=== PATIENT | male | born 1965 | race Caucasian/White ===

== ENCOUNTER 2018-12-28 15:43 | Observation (INO) | payer BC ==
[~2018-12-28] VITALS: Ht 185.4 cm; Wt 108.0 kg
[~2018-12-28 15:43] MED LIST: Acetaminophen With Codeine PO; EXEN2VIA SQ; FENO134C PO; Ibuprofen PO; LISI-130 PO; SITA1TAB11 PO; TRAZ-118 PO
--- NOTE | 2018-12-28 16:09 | EKG ---
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
--- NOTE | 2018-12-28 16:21 | PHYS DOC ---
Past Medical History Past Medical History: Diabetes-Type II, High Cholesterol, Hypertension, Other Additional Past Medical Histor: LIVER ABSCESS Past Surgical History: Other Additional Past Surgical Histo: UNK Smoking: Cigarettes, 1 Pack Per Day Alcohol Use: Occasionally (1-2 mixed drinks a night) Drug Use: None Adult General Chief Complaint Chief Complaint: CHEST PAIN HPI HPI Patient is a 53 year old male accompanied by his who presents to the ER with complaints of chest pain for the last 2 weeks. Pt states that he has been easily fatigued and been experiencing night sweats with the pain. The pain is located in his left chest and he describes it as pressure, currently the pain is a 3/10 on the pain scale. Patient denies any alleviating or aggravating factors. He usually takes an aspirin daily but did not take one today. Pt denies any n ausea, vomiting, palpitations, or leg swelling. He states his upper abdomen feels swollen. Pt smokes approximately 1 PPD of cigarettes and drinks 1-2 mixed drinks each evening. He reports a hx of type 2 diabetes, hypertension, and elevated bad cholesterol. He denies any CAD or [place] hx. He states that he was sent by his PCP for admission and a stress test. Review of Systems Review of Systems Constitutional: Denies fever or chills [] Eyes: Denies change in visual acuity, redness, or eye pain [] HENT: Denies nasal congestion or sore throat [] Respiratory: Denies cough or shortness of breath [] Cardiovascular: No additional information not addressed in HPI [] GI: Denies abdominal pain, nausea, vomiting, bloody stools or diarrhea [] : Denies dysuria or hematuria [] Musculoskeletal: Denies back pain or joint pain [] Integument: Denies rash or skin lesions; reports night sweats [] Neurologic: Denies headache, focal weakness or sensory changes [] Complete systems were reviewed and found to be within normal limits, except as documented in this note. Current Medications Current Medications Current Medications Medications (Trade) Dose Ordered Sig/Alen Start Time Stop Time Status Last Admin Dose Admin Aspirin (Precious Aspirin) 325 mg 1X ONCE 12/28/18 16:30 12/28/18 16:31 DC 12/28/18 16:37 325 MG Nitroglycerin (Nitrostat) 0.4 mg PRN Q5MIN PRN 7/9/19 16:30 12/28/18 16:37 0.4 MG Allergies Allergies Allergies Coded Allergies Type Severity Reaction Last Updated Verified No Known Drug Allergies 04/20/15 No Physical Exam Physical Exam Constitutional: Well developed, well nourished, no acute distress, non-toxic appearance, obese. [] HENT: Normocephalic, atraumatic, bilateral external ears normal, nose normal. [] Eyes: conjunctiva normal, no discharge. [] Neck: Normal range of motion, no stridor. [] Cardiovascular:Heart rate regular rhythm, no murmur [] Lungs & Thorax: Bilateral breath sounds clear to auscultation, respirations e ken and unlabored[] Abdomen: Bowel sounds normal, soft, no tenderness, no masses, no pulsatile masses. [] Skin: Warm, dry, no erythema, no rash. [] Extremities: No cyanosis, no clubbing, ROM intact, no edema. [] Neurologic: Alert and oriented X 3, no focal deficits noted. [] Psychologic: Affect normal, judgement normal, mood normal. [] Current Patient Data Vital Signs Vital Signs Date Time Temp Pulse Resp B/P (MAP) Pulse Ox O2 Delivery O2 Flow Rate FiO2 12/28/18 16:37 69 135/80 12/28/18 16:17 98.5 16 95 Room Air 98.5 Lab Values Laboratory Tests Test 12/28/18 16:30 White Blood Count 5.9 x10^3/uL (4.0-11.0) Red Blood Count 4.08 x10^6/uL (4.30-5.70) L Hemoglobin 13.7 g/dL (13.0-17.5) Hematocrit 39.7 % (39.0-53.0) Mean Corpuscular Volume 97 fL (79-100) Mean Corpuscular Hemoglobin 34 pg (25-35) Mean Corpuscular Hemoglobin Concent 35 g/dL (31-37) Red Cell Distribution Width 13.8 % (11.5-14.5) Platelet Count 265 x10^3/uL (140-400) Neutrophils (%) (Auto) 56 % (31-73) Lymphocytes (%) (Auto) 30 % (24-48) Monocytes (%) (Auto) 8 % (0-9) Eosinophils (%) (Auto) 6 % (0-3) H Basophils (%) (Auto) 1 % (0-3) Neutrophils # (Auto) 3.3 x10^3uL (1.8-7.7) Lymphocytes # (Auto) 1.8 x10^3/uL (1.0-4.8) Monocytes # (Auto) 0.5 x10^3/uL (0.0-1.1) Eosinophils # (Auto) 0.4 x10^3/uL (0.0-0.7) Basophils # (Auto) 0.0 x10^3/uL (0.0-0.2) Prothrombin Time 12.8 SEC (11.7-14.0) Prothrombin Time INR 1.0 (0.8-1.1) Sodium Level 139 mmol/L (136-145) Potassium Level 4.1 mmol/L (3.5-5.1) Chloride Level 105 mmol/L (98-107) Carbon Dioxide Level 24 mmol/L (21-32) Anion Gap 10 (6-14) Blood Urea Nitrogen 19 mg/dL (8-26) Creatinine 1.1 mg/dL (0.7-1.3) Estimated GFR (Cockcroft-Gault) 69.8 BUN/Creatinine Ratio 17 (6-20) Glucose Level 91 mg/dL (70-99) Calcium Level 9.4 mg/dL (8.5-10.1) Magnesium Level 2.0 mg/dL (1.8-2.4) Total Bilirubin 0.3 mg/dL (0.2-1.0) Aspartate Amino Transferase (AST) 27 U/L (15-37) Alanine Aminotransferase (ALT) 39 U/L (16-63) Alkaline Phosphatase 56 U/L (46-116) Creatine Kinase 370 U/L (39-308) H Creatine Kinase MB (Mass) 7.1 ng/mL (0.0-3.6) H Creatine Kinase MB Relative Index 1.9 % (0-4) Troponin I Quantitative < 0.017 ng/mL (0.000-0.055) Total Protein 6.8 g/dL (6.4-8.2) Albumin 3.9 g/dL (3.4-5.0) Albumin/Globulin Ratio 1.3 (1.0-1.7) Laboratory Tests 12/28/18 16:30 Laboratory Tests 12/28/18 16:30 EKG EKG 1614- SR rate of 64, no STEMI, QRS(T) contour abnormality, consider anteroseptal damage, read by Dr. Garcia [] Radiology/Procedures Radiology/Procedures PROCEDURE: CHEST PA & LATERAL CHEST PA LATERAL History: Chest pain. COMPARISON: None FINDINGS: The heart size is nonenlarged. No evidence of infiltrate, pleural effusion or pneumothorax. Bones appear grossly intact. IMPRESSION: No evidence of consolidating infiltrate.[] Course & Med Decision Making Course & Med Decision Making Pertinent Labs and Imaging studies reviewed. (See chart for details) Dx: chest pain EKG negative for STEMI, Pt was given 1 SL nitro in the ER with no change in CP, however, BP dropped significantly so remaining 2 doses were held by nurse, pt also given 325 mg of ASA CBC unremarkable, PT/INR WNL, CK 370, ck-mb 7.1, troponin <0.017 otherwise unremarkable CXR unremarkable 1718- Spoke with Dr. Vazquez, will admit patient for Chest pain observation, pt is in agreement with plan for admission. [] Dragon Disclaimer Dragon Disclaimer This electronic medical record was generated, in whole or in part, using a voice recognition dictation system. Departure Departure Referrals: CYRUS SAGASTUME MD (PCP) MARYURI VILLAGRAN APRN Dec 28, 2018 16:21
--- NOTE | 2018-12-28 16:25 | RAD ---
CHEST PA LATERAL History: Chest pain. COMPARISON: None FINDINGS: The heart size is nonenlarged. No evidence of infiltrate, pleural effusion or pneumothorax. Bones appear grossly intact. IMPRESSION: No evidence of consolidating infiltrate. Electronically signed by: Jadon Palencia MD (12/28/2018 4:22 PM) [id number]
[2018-12-28] MEDS ORDERED: ASPIRIN 325 MG TABLET PO ONE (16:30)
[2018-12-28] MEDS ORDERED: NITROGLYCERIN SUBLINGUAL 0.4 MG BOTTLE OF 25. SL PRN (16:30)
[2018-12-28 16:49] LABS: BASO % 1 % (0-3); EOS # 0.4 x10^3/uL (0.0-0.7); EOS % 6 % (0-3); HEMATOCRIT 39.7 % (39.0-53.0); HEMOGLOBIN 13.7 g/dL (13.0-17.5); LYMPH # 1.8 x10^3/uL (1.0-4.8); LYMPH % 30 % (24-48); MEAN CORPUSCULAR HEMOGLOBIN 34 pg (25-35); MEAN CORPUSCULAR HGB CONC 35 g/dL (31-37); MEAN CORPUSCULAR VOLUME 97 fL (79-100); MONO # 0.5 x10^3/uL (0.0-1.1); MONO % 8 % (0-9); NEUT # 3.3 x10^3uL (1.8-7.7); NEUT % 56 % (31-73); PLATELET COUNT 265 x10^3/uL (140-400); RED BLOOD COUNT 4.08 x10^6/uL (4.30-5.70); RED CELL DISTRIBUTION WIDTH 13.8 % (11.5-14.5); WHITE BLOOD COUNT 5.9 x10^3/uL (4.0-11.0)
[2018-12-28 17:08] LABS: PROTHROMBIN TIME PATIENT 12.8 SEC (11.7-14.0)
[2018-12-28 17:10] LABS: CALCIUM 9.4 mg/dL (8.5-10.1); CREATININE 1.1 mg/dL (0.7-1.3); GFR 69.8; POTASSIUM 4.1 mmol/L (3.5-5.1)
[2018-12-28 17:17] LABS: ALBUMIN 3.9 g/dL (3.4-5.0); ALBUMIN/GLOBULIN RATIO 1.3 (1.0-1.7); TOTAL BILIRUBIN 0.3 mg/dL (0.2-1.0); TOTAL PROTEIN 6.8 g/dL (6.4-8.2)
[2018-12-28 20:00] VITALS: BP 125/71
[2018-12-28] MEDS ORDERED: LISI-130 PO (20:24)
[2018-12-28] MEDS ORDERED: FENO134C PO (20:24)
[2018-12-28] MEDS ORDERED: METF10007 PO (20:24)
[2018-12-28] MEDS ORDERED: TRAZ-118 PO (20:24)
[2018-12-28] MEDS ORDERED: ZOLPIDEM 5 MG TABLET. PO PRN (20:45)
--- NOTE | 2018-12-28 20:58 | PDOC1 ---
History and Physical Date of Admission Date of Admission DATE: 12/28/18 TIME: 20:54 Identification/Chief Complaint Chief Complaint chest pain, nausea, weakness Source Source: Chart review, Patient History of Present Illness History of Present Illness MR. Beltre, is a 53 year old male admit for worsening chest pain, nausea and weakness, worse with exertion, over the past 2 weeks. pain is mild, to the left chest and he describes it as pressure, currently the pain is a 3/10 on the pain scale. he has new fatigue with exertion and is easily very tired. Patient denies any alleviating or aggravating factors. He usually takes an aspirin daily but did not take one today. marie. Pt smokes approximately 1 PPD of cigarettes and drinks 1-2 mixed drinks each evening. Past Medical History Cardiovascular: HTN Pulmonary: No pertinent hx GI: No pertinent hx Hepatobiliary: No pertinent hx Psych: No pertinent hx Endocrine: Diabetes Past Surgical History Past Surgical History: No pertinent history Family History Family History: No Significant Social History Smoke: 1 pack per day ALCOHOL: none Drugs: None Current Problem List Problem List Problems Medical Problems: (1) Chest pain Status: Acute Current Medications Current Medications Current Medications Aspirin (Precious Aspirin) 325 mg 1X ONCE PO Last administered on 12/28/18at 16:37; Start 12/28/18 at 16:30; Stop 12/28/18 at 16:31; Status DC Nitroglycerin (Nitrostat) 0.4 mg PRN Q5MIN PRN SL CHEST PAIN Last administered on 12/28/18at 16:37; Start 12/28/18 at 16:30 Famotidine (Pepcid) 20 mg BID PO ; Start 12/28/18 at 21:00 Lisinopril (Prinivil) 40 mg HS PO ; Start 12/28/18 at 21:00 Trazodone HCl (Desyrel) 50 mg QHS PO ; Start 12/28/18 at 21:00 Zolpidem Tartrate (Ambien) 5 mg PRN QHS PRN PO INSOMNIA, MAY REPEAT IN 1HR; Start 12/28/18 at 20:45 Active Scripts Active Reported Fenofibrate (Fenofibrate,Micronized) Unknown Strength Capsule Unknown Dose PO DAILY Metformin Hcl 1,000 Mg Tablet 1,000 Mg PO BIDWMEALS Lisinopril 40 Mg Tablet 1 Tab PO HS Trazodone Hcl 50 Mg Tablet 1 Tab PO QHS Allergies Allergies: Coded Allergies: No Known Drug Allergies (Unverified , 04/20/15) ROS General: YES: Fatigue, Other; No: Chills, Night Sweats, Appetite PSYCHOLOGICAL ROS: No: Anxiety, Behavioral Disorder, Concentration difficultie, Decreased libido, Depression, Disorientation, Hallucinations, Hostility, Irritablity, Memory difficulties, Mood Swings, Obsessive thoughts, Physical abuse, Sexual abuse, Sleep disturbances, Suicidal ideation, Other Eyes: No Blurry vision, No Decreased vision, No Double vision, No Dry eyes, No Excessive tearing, No Eye Pain, No Itchy Eyes, No Loss of vision, No Photophobia, No Scotomata, No Uses contacts, No Uses glasses, No Other HEENT: No: Heacaches, Visual Changes, Hearing change, Nasal congestion, Nasal discharge, Oral lesions, Sinus pain, Sore Throat, Epistaxis, Sneezing, Snoring, Tinnitus, Vertigo, Vocal changes, Other Respiratory: YES: SOB with excertion; No: Cough, Hemoptysis, Orthopnea, Pleuritic Pain, Shortness of breath, Sputum Changes, Stridor, Tachypnea, Wheezing, Other Cardiovascular: yes Chest Pain; No Palpitations, No Orthopnea, No Paroxysmal Noc. Dyspnea, No Edema, No Lt Headedness, No Other Gastrointestinal: No Nausea, No Vomiting, No Abdominal Pain, No Diarrhea, No Constipation, No Melena, No Hematochezia, No Other Genitourinary: No Dysuria, No Frequency, No Incontinence, No Hematuria, No Retention, No Discharge, No Urgency, No Pain, No Flank Pain, No Other, No , No , No , No , No , No , No Musculoskeletal: No Gait Disturbance, No Joint Pain, No Joint Stiffness, No Joint Swelling, No Muscle Pain, No Muscular Weakness, No Pain In:, No Swelling In:, No Other Neurological: No Behavorial Changes, No Bowel/Bladder ControlChng, No C onfusion, No Dizziness, No Gait Disturbance, No Headaches, No Impaired Coord/balance, No Memory Loss, No Numbness/Tingling, No Seizures, No Speech Problems, No Tremors, No Visual Changes, No Weakness, No Other Skin: Yes Dry Skin; No Eczema, No Hair Changes, No Lumps, No Mole Changes, No Mottling, No Nail Changes, No Pruritus, No Rash, No Skin Lesion Changes, No Other, No Acne Physical Exam General: Alert, No acute distress HEENT: Atraumatic, PERRLA, EOMI, Mucous membr. moist/pink Lungs: Clear to auscultation Heart: S1S2, RRR, no gallops Abdomen: Normal bowel sounds, Soft Rectal Exam: not examined Extremities: No clubbing, No cyanosis, No edema Skin: No breakdown, No significant lesion Neuro: Normal speech, Normal tone, Cranial nerves 3-12 NL Psych/Mental Status: Mental status NL, Mood NL Vitals Vitals Vital Signs Date Time Temp Pulse Resp B/P (MAP) Pulse Ox O2 Delivery O2 Flow Rate FiO2 12/28/18 20:00 97.8 69 16 125/71 (89) 94 Room Air 97.8 Labs Labs Laboratory Tests Test 12/28/18 16:30 White Blood Count 5.9 x10^3/uL (4.0-11.0) Red Blood Count 4.08 x10^6/uL (4.30-5.70) Hemoglobin 13.7 g/dL (13.0-17.5) Hematocrit 39.7 % (39.0-53.0) Mean Corpuscular Volume 97 fL (79-100) Mean Corpuscular Hemoglobin 34 pg (25-35) Mean Corpuscular Hemoglobin Concent 35 g/dL (31-37) Red Cell Distribution Width 13.8 % (11.5-14.5) Platelet Count 265 x10^3/uL (140-400) Neutrophils (%) (Auto) 56 % (31-73) Lymphocytes (%) (Auto) 30 % (24-48) Monocytes (%) (Auto) 8 % (0-9) Eosinophils (%) (Auto) 6 % (0-3) Basophils (%) (Auto) 1 % (0-3) Neutrophils # (Auto) 3.3 x10^3uL (1.8-7.7) Lymphocytes # (Auto) 1.8 x10^3/uL (1.0-4.8) Monocytes # (Auto) 0.5 x10^3/uL (0.0-1.1) Eosinophils # (Auto) 0.4 x10^3/uL (0.0-0.7) Basophils # (Auto) 0.0 x10^3/uL (0.0-0.2) Prothrombin Time 12.8 SEC (11.7-14.0) Prothromb Time International Ratio 1.0 (0.8-1.1) Sodium Level 139 mmol/L (136-145) Potassium Level 4.1 mmol/L (3.5-5.1) Chloride Level 105 mmol/L (98-107) Carbon Dioxide Level 24 mmol/L (21-32) Anion Gap 10 (6-14) Blood Urea Nitrogen 19 mg/dL (8-26) Creatinine 1.1 mg/dL (0.7-1.3) Estimated GFR (Cockcroft-Gault) 69.8 BUN/Creatinine Ratio 17 (6-20) Glucose Level 91 mg/dL (70-99) Calcium Level 9.4 mg/dL (8.5-10.1) Magnesium Level 2.0 mg/dL (1.8-2.4) Total Bilirubin 0.3 mg/dL (0.2-1.0) Aspartate Amino Transf (AST/SGOT) 27 U/L (15-37) Alanine Aminotransferase (ALT/SGPT) 39 U/L (16-63) Alkaline Phosphatase 56 U/L (46-116) Creatine Kinase 370 U/L (39-308) Creatine Kinase MB (Mass) 7.1 ng/mL (0.0-3.6) Creatine Kinase MB Relative Index 1.9 % (0-4) Troponin I Quantitative < 0.017 ng/mL (0.000-0.055) Total Protein 6.8 g/dL (6.4-8.2) Albumin 3.9 g/dL (3.4-5.0) Albumin/Globulin Ratio 1.3 (1.0-1.7) Laboratory Tests Test 12/28/18 16:30 White Blood Count 5.9 x10^3/uL (4.0-11.0) Red Blood Count 4.08 x10^6/uL (4.30-5.70) Hemoglobin 13.7 g/dL (13.0-17.5) Hematocrit 39.7 % (39.0-53.0) Mean Corpuscular Volume 97 fL (79-100) Mean Corpuscular Hemoglobin 34 pg (25-35) Mean Corpuscular Hemoglobin Concent 35 g/dL (31-37) Red Cell Distribution Width 13.8 % (11.5-14.5) Platelet Count 265 x10^3/uL (140-400) Neutrophils (%) (Auto) 56 % (31-73) Lymphocytes (%) (Auto) 30 % (24-48) Monocytes (%) (Auto) 8 % (0-9) Eosinophils (%) (Auto) 6 % (0-3) Basophils (%) (Auto) 1 % (0-3) Neutrophils # (Auto) 3.3 x10^3uL (1.8-7.7) Lymphocytes # (Auto) 1.8 x10^3/uL (1.0-4.8) Monocytes # (Auto) 0.5 x10^3/uL (0.0-1.1) Eosinophils # (Auto) 0.4 x10^3/uL (0.0-0.7) Basophils # (Auto) 0.0 x10^3/uL (0.0-0.2) Prothrombin Time 12.8 SEC (11.7-14.0) Prothromb Time International Ratio 1.0 (0.8-1.1) Sodium Level 139 mmol/L (136-145) Potassium Level 4.1 mmol/L (3.5-5.1) Chloride Level 105 mmol/L (98-107) Carbon Dioxide Level 24 mmol/L (21-32) Anion Gap 10 (6-14) Blood Urea Nitrogen 19 mg/dL (8-26) Creatinine 1.1 mg/dL (0.7-1.3) Estimated GFR (Cockcroft-Gault) 69.8 BUN/Creatinine Ratio 17 (6-20) Glucose Level 91 mg/dL (70-99) Calcium Level 9.4 mg/dL (8.5-10.1) Magnesium Level 2.0 mg/dL (1.8-2.4) Total Bilirubin 0.3 mg/dL (0.2-1.0) Aspartate Amino Transf (AST/SGOT) 27 U/L (15-37) Alanine Aminotransferase (ALT/SGPT) 39 U/L (16-63) Alkaline Phosphatase 56 U/L (46-116) Creatine Kinase 370 U/L (39-308) Creatine Kinase MB (Mass) 7.1 ng/mL (0.0-3.6) Creatine Kinase MB Relative Index 1.9 % (0-4) Troponin I Quantitative < 0.017 ng/mL (0.000-0.055) Total Protein 6.8 g/dL (6.4-8.2) Albumin 3.9 g/dL (3.4-5.0) Albumin/Globulin Ratio 1.3 (1.0-1.7) VTE Prophylaxis Ordered VTE Prophylaxis Devices: No VTE Pharmacological Prophylaxi: Yes Assessment/Plan Assessment/Plan chest pain, angina r.o ACD Dm2, good control, reports A1c of 5.1 htn low HDL, on fibrate tobacco use disorder, precontemplation of quitting obese, BMI 31 EMELINA FRANKLIN MD Dec 28, 2018 20:57
[2018-12-28] MEDS ORDERED: LISINOPRIL 20 MG TABLET PO SCH (21:00)
[2018-12-28] MEDS ORDERED: traZODone 50 MG TABLET. PO SCH (21:00)
[2018-12-28] MEDS: FAMOTIDINE 20 MG TABLET. PO SCH (21:35)
[2018-12-28] MEDS ORDERED: ENOXAPARIN 40 MG/0.4 ML SYRINGE. SQ SCH (22:00)
[2018-12-28 23:03] VITALS: BP 121/69
[2018-12-29 03:00] VITALS: BP 129/74
[2018-12-29 05:15] LABS: CHOLESTEROL/HDL RATIO 4.5
[2018-12-29 05:23] LABS: FREE T4 0.99 ng/dL (0.76-1.46); THYROID STIM HORMONE (TSH) 1.356 uIU/mL (0.358-3.74)
--- NOTE | 2018-12-29 06:07 | EKG ---
[facility] [address] [place] [address] Test Date: 2018-12-28 Test Time: 16:14:00 Pat Name: SUMMER THOMPSON Department: Room: Gender: Cable Maker: : 1965 Requested By: MARYURI VILLAGRAN Order Number: [id number] Reading MD: Measurements Intervals [place] Rate: 64 P: 31 IA: 164 QRS: 32 QRSD: 84 T: 30 QT: 374 QTc: 390 Interpretive Statements SINUS RHYTHM QRS(T) CONTOUR ABNORMALITY CONSIDER ANTEROSEPTAL MYOCARDIAL DAMAGE POSSIBLY ABNORMAL ECG RI6.01 No previous ECG available for comparison
[2018-12-29 07:48] VITALS: BP 142/86
--- NOTE | 2018-12-29 09:41 | CARD ---
MR#: [id number] Date of Study: 12/29/2018 Ordering Physician: EMELINA FRANKLIN, Referring Physician: EMELINA FRANKLIN, Tech: Capri Cruz APPROVED REPORT EXAM: Two-dimensional and M-mode echocardiogram with Doppler and color Doppler. Other Information Quality : AverageHR: 65bpm INDICATION Chest Pain RISK FACTORS Hypertension Hyperlipidemia Diabetes 2D DIMENSIONS RVDd3.2 (2.9-3.5cm)Left Atrium(2D)3.2 (1.6-4.0cm) IVSd1.0 (0.7-1.1cm)Aortic Root(2D)3.4 (2.0-3.7cm) LVDd5.3 (3.9-5.9cm)LVOT Diameter2.2 (1.8-2.4cm) PWd1.0 (0.7-1.1cm)LVDs3.9 (2.5-4.0cm) FS (%) 25.6 %SV66.9 ml LVEF(%)50.1 (>50%) Aortic Valve AoV Peak Keith.118.5cm/sAoV VTI22.8cm AO Peak GR.5.6mmHgLVOT Peak Keith.104.4cm/s LVOT VTI 21.79cmAO Mean GR.3mmHg RHETT (VMAX)2.09kt6ZDJ (VTI)3.75cm2 Mitral Valve MV E Wsdxbphk42.9cm/sMV DECEL [id number] MV A Gfxrtqqv39.2cm/sMV KUX33xs E/A Ratio1.1MVA (PHT)2.97cm2 TDI E/Lateral E'6.0E/Medial E'7.3 Pulmonary Valve PV Peak Keoyzawa83.0cm/sPV Peak Grad.3mmHg Tricuspid Valve RAP UIXNASCR2teOxTP Peak Gr.20mmHg [id number] Pulmonary Vein S1 Dcbsplvv61.1cm/sD2 Ngnaxlwo24.0cm/s PVa [id number] LEFT VENTRICLE The left ventricle is normal size. There is normal left ventricular wall thickness. The left ventricu lar systolic function is normal. The Ejection Fraction is 55-60%. There is normal LV segmental wall m otion. Transmitral Doppler flow pattern is Grade II-pseudonormal filling dynamics. RIGHT VENTRICLE The right ventricle is borderline dilated. There is normal right ventricular wall thickness. The righ t ventricular systolic function is normal. ATRIA The left atrium size is normal. The right atrium size is normal. The interatrial septum is intact wit h no evidence for an atrial septal defect or patent foramen ovale as noted on 2-D or Doppler imaging. AORTIC VALVE The aortic valve is thickened but opens well. Doppler and Color Flow revealed trace aortic regurgitat ion. There is no significant aortic valvular stenosis. MITRAL VALVE The mitral valve is normal in structure and function. There is no evidence of mitral valve prolapse. There is no mitral valve stenosis. Doppler and Color Flow revealed no mitral valve regurgitation note d. TRICUSPID VALVE The tricuspid valve is normal in structure and function. Doppler and Color Flow revealed trace tricus pid valve regurgitation noted with an estimated PAP of 23 mmHg. There is no tricuspid valve prolapse or vegetation. There is no tricuspid valve stenosis. PULMONIC VALVE The pulmonic valve is not well visualized. Doppler and Color Flow revealed no pulmonic valvular regur gitation. GREAT VESSELS The aortic root is normal in size. The IVC is normal in size and collapses >50% with inspiration. PERICARDIAL EFFUSION There is no evidence of significant pericardial effusion. Critical Notification Critical Value: No <Conclusion> The left ventricular systolic function is normal. The Ejection Fraction is 55-60%. There is normal LV segmental wall motion. Trace tricuspid valve regurgitation noted with an estimated PAP of 23 mmHg. There is no evidence of significant pericardial effusion. Signed by : Candido Muñoz, Electronically Approved : 12/29/2018 09:40:56
--- NOTE | 2018-12-29 10:40 | PDOC2 ---
CARDIAC CONSULT DATE OF CONSULT Date of Consult DATE: 12/29/18 TIME: 10:28 REASON FOR CONSULT Reason for Consult: Chest pain REFERRING PHYSICIAN Referring Physician: Vero Tee APRN SOURCE Source: Chart review, Patient HISTORY OF PRESENT ILLNESS HISTORY OF PRESENT ILLNESS This is a 53 yo male who presented secondary to chest pain. Patient reports falling on concrete about two weeks ago onto his left side. Has had left sided rib pain since then. Over the weekend, began having tightness in his left chest. Non-radiating. No associated dizziness, diaphoresis, palpitations, shortness or breath, or nausea/vomiting. Patient does complain of MEREDITH for the last 6 months, which has progressively worsened. Recently diagnosed with "mild" COPD. Pain seems to be better in the morning, but progresses throughout the day. No specifically worse with activity, but is much more intense in the evening. No affected by palpitation, deep breathing, or eating/drinking. PAST MEDICAL HISTORY Cardiovascular: HTN Pulmonary: COPD GI: GERD Psych: Depression Rheumatologic: No pertinent hx Infectious disease: No pertinent hx ENT: No pertinent hx Renal/: No pertinent hx Endocrine: Diabetes PAST SURGICAL HISTORY Past Surgical History: Other (right knee, left carapl tunnel surgery) FAMILY HISTORY Family History: Other (thyroid disease) SOCIAL HISTORY Smoke: 1 pack per day ALCOHOL: occassional Drugs: None Lives: with Family CURRENT MEDICATIONS CURRENT MEDICATIONS Current Medications Medications (Trade) Dose Ordered Sig/Alen Route PRN Reason Start Time Stop Time Status Last Admin Dose Admin Aspirin (Precious Aspirin) 325 mg 1X ONCE PO 12/28/18 16:30 12/28/18 16:31 DC 12/28/18 16:37 Nitroglycerin (Nitrostat) 0.4 mg PRN Q5MIN PRN SL CHEST PAIN 12/28/18 16:30 12/28/18 16:37 Famotidine (Pepcid) 20 mg BID PO 12/28/18 21:00 12/28/18 21:35 Lisinopril (Prinivil) 40 mg HS PO 12/28/18 21:00 12/28/18 21:36 Trazodone HCl (Desyrel) 50 mg QHS PO 12/28/18 21:00 12/28/18 21:36 Enoxaparin Sodium (Lovenox 40mg Syringe) 40 mg Q24H SQ 12/28/18 22:00 12/28/18 21:37 ALLERGIES ALLERGIES: Coded Allergies: cephalexin (Verified Allergy, Intermediate, Rash, 12/29/18) ROS Review of System 14 point ROS conducted with pertinent positives noted above in HPI PHYSICAL EXAM General: Alert, Oriented X3, Cooperative, No acute distress HEENT: Atraumatic, Mucous membr. moist/pink Lungs: Clear to auscultation, Normal air movement Heart: Regular rate, Normal S1, Normal S2 Abdomen: Soft, No tenderness Extremities: No edema, Normal pulses Skin: No breakdown, No significant lesion Neuro: Normal speech, Sensation intact Psych/Mental Status: Mental status NL, Mood NL MUSCULOSKELETAL: No deformity VITALS/I&O VITALS/I&O: Vital Signs Date Time Temp Pulse Resp B/P (MAP) Pulse Ox O2 Delivery O2 Flow Rate FiO2 12/29/18 08:00 Room Air 12/29/18 07:48 97.8 68 18 142/86 (104) 97 97.8 I & O 12/28/18 12/28/18 12/29/18 14:59 22:59 06:59 Intake Total 300 ml 300 ml Balance 300 ml 300 ml LABS Lab: Laboratory Tests Test 12/28/18 16:30 12/28/18 20:10 12/29/18 03:50 White Blood Count 5.9 x10^3/uL (4.0-11.0) Red Blood Count 4.08 x10^6/uL (4.30-5.70) L Hemoglobin 13.7 g/dL (13.0-17.5) Hematocrit 39.7 % (39.0-53.0) Mean Corpuscular Volume 97 fL (79-100) Mean Corpuscular Hemoglobin 34 pg (25-35) Mean Corpuscular Hemoglobin Concent 35 g/dL (31-37) Red Cell Distribution Width 13.8 % (11.5-14.5) Platelet Count 265 x10^3/uL (140-400) Neutrophils (%) (Auto) 56 % (31-73) Lymphocytes (%) (Auto) 30 % (24-48) Monocytes (%) (Auto) 8 % (0-9) Eosinophils (%) (Auto) 6 % (0-3) H Basophils (%) (Auto) 1 % (0-3) Neutrophils # (Auto) 3.3 x10^3uL (1.8-7.7) Lymphocytes # (Auto) 1.8 x10^3/uL (1.0-4.8) Monocytes # (Auto) 0.5 x10^3/uL (0.0-1.1) Eosinophils # (Auto) 0.4 x10^3/uL (0.0-0.7) Basophils # (Auto) 0.0 x10^3/uL (0.0-0.2) Prothrombin Time 12.8 SEC (11.7-14.0) Prothrombin Time INR 1.0 (0.8-1.1) Sodium Level 139 mmol/L (136-145) Potassium Level 4.1 mmol/L (3.5-5.1) Chloride Level 105 mmol/L (98-107) Carbon Dioxide Level 24 mmol/L (21-32) Anion Gap 10 (6-14) Blood Urea Nitrogen 19 mg/dL (8-26) Creatinine 1.1 mg/dL (0.7-1.3) Estimated GFR (Cockcroft-Gault) 69.8 BUN/Creatinine Ratio 17 (6-20) Glucose Level 91 mg/dL (70-99) Calcium Level 9.4 mg/dL (8.5-10.1) Magnesium Level 2.0 mg/dL (1.8-2.4) Total Bilirubin 0.3 mg/dL (0.2-1.0) Aspartate Amino Transferase (AST) 27 U/L (15-37) Alanine Aminotransferase (ALT) 39 U/L (16-63) Alkaline Phosphatase 56 U/L (46-116) Creatine Kinase 370 U/L (39-308) H Creatine Kinase MB (Mass) 7.1 ng/mL (0.0-3.6) H Creatine Kinase MB Relative Index 1.9 % (0-4) Troponin I Quantitative < 0.017 ng/mL (0.000-0.055) < 0.017 ng/mL (0.000-0.055) < 0.017 ng/mL (0.000-0.055) Total Protein 6.8 g/dL (6.4-8.2) Albumin 3.9 g/dL (3.4-5.0) Albumin/Globulin Ratio 1.3 (1.0-1.7) KG-Ehs-C-Type Natriuretic Peptide 69 pg/mL (0-124) Triglycerides Level 182 mg/dL (0-150) H Cholesterol Level 144 mg/dL (0-200) LDL Cholesterol, Calculated 76 mg/dL (0-100) VLDL Cholesterol, Calculated 36 mg/dL (0-40) Non-HDL Cholesterol Calculated 112 mg/dL (0-129) HDL Cholesterol 32 mg/dL (40-60) L Cholesterol/HDL Ratio 4.5 Thyroid Stimulating Hormone (TSH) 1.356 uIU/mL (0.358-3.74) Free Thyroxine 0.99 ng/dL (0.76-1.46) Laboratory Tests 12/28/18 16:30 Laboratory Tests 12/28/18 16:30 ECHOCARDIOGRAM ECHOCARDIOGRAM <Conclusion> The left ventricular systolic function is normal. The Ejection Fraction is 55-60%. There is normal LV segmental wall motion. Trace tricuspid valve regurgitation noted with an estimated PAP of 23 mmHg. There is no evidence of significant pericardial effusion. DATE: 12/29/18 0940 ASSESSMENT/PLAN ASSESSMENT/PLAN 1. Chest pain, atypical. Troponin series normal- AMI ruled out. Echo with preserved LV systolic function 2. MEREDITH. COPD given tobaccoism versus coronary disease component 3. Hypertension; controlled 4. Diabetes, II 5. Tobaccoism; discussed/encouraged cessation Recommendations ASA, statin Continue lisinopril Will arrange for outpatient stress test given risk factors. Follow up in our office with Dr. Islas as scheduled. KYLE BEAULIEU APRN Dec 29, 2018 10:40
[2018-12-29 11:27] VITALS: BP 140/72
[2018-12-29] MEDS: FAMOTIDINE 20 MG TABLET. PO SCH (11:46)
--- NOTE | 2018-12-29 13:40 | PDOC ---
PROGRESS NOTES Chief Complaint Chief Complaint reports falling on concrete about two weeks ago onto his left side. Has had left sided rib pain since then. Over the weekend, began having tightness in his left chest. Non-radiating. No associated dizziness, diaphoresis, palpitations, shortness or breath, or nausea/vomiting. Patient does complain of MEREDITH for the last 6 months, which has progressively worsened. Recently diagnosed with "mild" COPD. History of Present Illness History of Present Illness VTE Prophylaxis Ordered VTE Prophylaxis Devices: No VTE Pharmacological Prophylaxi: Yes Assessment/Plan chest pain, angina troponin i ,,, neg x 3 r.o ACD Dm2, good control, reports A1c of 5.1 htn low HDL, on fibrate tobacco use disorder, obesity, BMI 31 The left ventricular systolic function is normal. 12/28/18 on echo The Ejection Fraction is 55-60%. There is normal LV segmental wall motion. Trace tricuspid valve regurgitation noted with an estimated PAP of 23 mmHg. There is no evidence of significant pericardial effusion. plan cvc bed cardiology consult outpatient stress test, cardiology will arrange 24 min d/c planning time Vitals Vitals Vital Signs Date Time Temp Pulse Resp B/P (MAP) Pulse Ox O2 Delivery O2 Flow Rate FiO2 12/29/18 11:27 98.0 65 18 140/72 (94) 96 Room Air 98.0 Physical Exam General: Alert, Oriented X3, Cooperative, No acute distress Heart: Regular rate, Normal S1, Normal S2 Lungs: Clear Abdomen: Soft, No tenderness Extremities: No cyanosis, No edema, Normal pulses Skin: No breakdown, No significant lesion Labs LABS Pulmonary Valve PV Peak Velocity 88.0cm/s PV Peak Grad. 3mmHg Tricuspid Valve RAP ESTIMATE 3mmHg TR Peak Gr. 20mmHg RVSP 23mmHg Pulmonary Vein S1 Velocity 40.1cm/s D2 Velocity 42.0cm/s PVa duration 130msec LEFT VENTRICLE The left ventricle is normal size. There is normal left ventricular wall thickness. The left ventricular systolic function is normal. The Ejection Fraction is 55-60%. There is normal LV segmental wall motion. Transmitral Doppler flow pattern is Grade II-pseudonormal filling dynamics. RIGHT VENTRICLE The right ventricle is borderline dilated. There is normal right ventricular wall thickness. The right ventricular systolic function is normal. ATRIA The left atrium size is normal. The right atrium size is normal. The interatrial septum is intact with no evidence for an atrial septal defect or patent foramen ovale as noted on 2-D or Doppler imaging. AORTIC VALVE The aortic valve is thickened but opens well. Doppler and Color Flow revealed trace aortic regurgitation. There is no significant aortic valvular stenosis. MITRAL VALVE The mitral valve is normal in structure and function. There is no evidence of mitral valve prolapse. There is no mitral valve stenosis. Doppler and Color Flow revealed no mitral valve regurgitation noted. TRICUSPID VALVE The tricuspid valve is normal in structure and function. Doppler and Color Flow revealed trace tricuspid valve regurgitation noted with an estimated PAP of 23 mmHg. There is no tricuspid valve prolapse or vegetation. There is no tricuspid valve stenosis. PULMONIC VALVE The pulmonic valve is not well visualized. Doppler and Color Flow revealed no pulmonic valvular regurgitation. GREAT VESSELS The aortic root is normal in size. The IVC is normal in size and collapses >50% with inspiration. PERICARDIAL EFFUSION There is no evidence of significant pericardial effusion. Critical Notification Critical Value: No <Conclusion> The left ventricular systolic function is normal. The Ejection Fraction is 55-60%. There is normal LV segmental wall motion. Trace tricuspid valve regurgitation noted with an estimated PAP of 23 mmHg. There is no evidence of significant pericardial effusion. Signed by : Ismael Goodwin, Electronically Approved : 12/29/2018 09:40:56 DICTATED and SIGNED BY: ISMAEL GOODWIN MD DATE: 12/29/18 0940 [id number] CC: CYRUS SAGASTUME MD; EMELINA FRANKLIN MD; ISMAEL GOODWIN MD ~ Page of CHEST PA LATERAL History: Chest pain. COMPARISON: None FINDINGS: The heart size is nonenlarged. No evidence of infiltrate, pleural effusion or pneumothorax. Bones appear grossly intact. IMPRESSION: No evidence of consolidating infiltrate. Electronically signed by: Jadon Palencia MD (12/28/2018 4:22 PM) [id number] DICTATED and SIGNED BY: JADON PALENCIA MD DATE: 12/28/18 1622 Laboratory Tests Test 12/28/18 16:30 12/28/18 20:10 12/29/18 03:50 12/29/18 12:01 White Blood Count 5.9 x10^3/uL (4.0-11.0) Red Blood Count 4.08 x10^6/uL (4.30-5.70) Hemoglobin 13.7 g/dL (13.0-17.5) Hematocrit 39.7 % (39.0-53.0) Mean Corpuscular Volume 97 fL (79-100) Mean Corpuscular Hemoglobin 34 pg (25-35) Mean Corpuscular Hemoglobin Concent 35 g/dL (31-37) Red Cell Distribution Width 13.8 % (11.5-14.5) Platelet Count 265 x10^3/uL (140-400) Neutrophils (%) (Auto) 56 % (31-73) Lymphocytes (%) (Auto) 30 % (24-48) Monocytes (%) (Auto) 8 % (0-9) Eosinophils (%) (Auto) 6 % (0-3) Basophils (%) (Auto) 1 % (0-3) Neutrophils # (Auto) 3.3 x10^3uL (1.8-7.7) Lymphocytes # (Auto) 1.8 x10^3/uL (1.0-4.8) Monocytes # (Auto) 0.5 x10^3/uL (0.0-1.1) Eosinophils # (Auto) 0.4 x10^3/uL (0.0-0.7) Basophils # (Auto) 0.0 x10^3/uL (0.0-0.2) Prothrombin Time 12.8 SEC (11.7-14.0) Prothromb Time International Ratio 1.0 (0.8-1.1) Sodium Level 139 mmol/L (136-145) Potassium Level 4.1 mmol/L (3.5-5.1) Chloride Level 105 mmol/L (98-107) Carbon Dioxide Level 24 mmol/L (21-32) Anion Gap 10 (6-14) Blood Urea Nitrogen 19 mg/dL (8-26) Creatinine 1.1 mg/dL (0.7-1.3) Estimated GFR (Cockcroft-Gault) 69.8 BUN/Creatinine Ratio 17 (6-20) Glucose Level 91 mg/dL (70-99) Calcium Level 9.4 mg/dL (8.5-10.1) Magnesium Level 2.0 mg/dL (1.8-2.4) Total Bilirubin 0.3 mg/dL (0.2-1.0) Aspartate Amino Transf (AST/SGOT) 27 U/L (15-37) Alanine Aminotransferase (ALT/SGPT) 39 U/L (16-63) Alkaline Phosphatase 56 U/L (46-116) Creatine Kinase 370 U/L (39-308) Creatine Kinase MB (Mass) 7.1 ng/mL (0.0-3.6) Creatine Kinase MB Relative Index 1.9 % (0-4) Troponin I Quantitative < 0.017 ng/mL (0.000-0.055) < 0.017 ng/mL (0.000-0.055) < 0.017 ng/mL (0.000-0.055) Total Protein 6.8 g/dL (6.4-8.2) Albumin 3.9 g/dL (3.4-5.0) Albumin/Globulin Ratio 1.3 (1.0-1.7) SI-Qdk-Y-Type Natriuretic Peptide 69 pg/mL (0-124) Triglycerides Level 182 mg/dL (0-150) Cholesterol Level 144 mg/dL (0-200) LDL Cholesterol, Calculated 76 mg/dL (0-100) VLDL Cholesterol, Calculated 36 mg/dL (0-40) Non-HDL Cholesterol Calculated 112 mg/dL (0-129) HDL Cholesterol 32 mg/dL (40-60) Cholesterol/HDL Ratio 4.5 Thyroid Stimulating Hormone (TSH) 1.356 uIU/mL (0.358-3.74) Free Thyroxine 0.99 ng/dL (0.76-1.46) Glucose (Fingerstick) 84 mg/dL (70-99) Assessment and Plan Assessmemt and Plan Problems Medical Problems: (1) Chest pain Status: Acute Past Medical History Past Medical History: Diabetes-Type II, High Cholesterol, Hypertension, Other Additional Past Medical Histor: LIVER ABSCESS Past Surgical History: Other Additional Past Surgical Histo: UNK Smoking: Cigarettes, 1 Pack Per Day Alcohol Use: Occasionally (1-2 mixed drinks a night) Drug Use: None Comment Review of Relevant I have reviewed the following items holly (where applicable) has been applied. Labs Laboratory Tests Test 12/28/18 16:30 12/28/18 20:10 12/29/18 03:50 12/29/18 12:01 White Blood Count 5.9 x10^3/uL (4.0-11.0) Red Blood Count 4.08 x10^6/uL (4.30-5.70) Hemoglobin 13.7 g/dL (13.0-17.5) Hematocrit 39.7 % (39.0-53.0) Mean Corpuscular Volume 97 fL (79-100) Mean Corpuscular Hemoglobin 34 pg (25-35) Mean Corpuscular Hemoglobin Concent 35 g/dL (31-37) Red Cell Distribution Width 13.8 % (11.5-14.5) Platelet Count 265 x10^3/uL (140-400) Neutrophils (%) (Auto) 56 % (31-73) Lymphocytes (%) (Auto) 30 % (24-48) Monocytes (%) (Auto) 8 % (0-9) Eosinophils (%) (Auto) 6 % (0-3) Basophils (%) (Auto) 1 % (0-3) Neutrophils # (Auto) 3.3 x10^3uL (1.8-7.7) Lymphocytes # (Auto) 1.8 x10^3/uL (1.0-4.8) Monocytes # (Auto) 0.5 x10^3/uL (0.0-1.1) Eosinophils # (Auto) 0.4 x10^3/uL (0.0-0.7) Basophils # (Auto) 0.0 x10^3/uL (0.0-0.2) Prothrombin Time 12.8 SEC (11.7-14.0) Prothromb Time International Ratio 1.0 (0.8-1.1) Sodium Level 139 mmol/L (136-145) Potassium Level 4.1 mmol/L (3.5-5.1) Chloride Level 105 mmol/L (98-107) Carbon Dioxide Level 24 mmol/L (21-32) Anion Gap 10 (6-14) Blood Urea Nitrogen 19 mg/dL (8-26) Creatinine 1.1 mg/dL (0.7-1.3) Estimated GFR (Cockcroft-Gault) 69.8 BUN/Creatinine Ratio 17 (6-20) Glucose Level 91 mg/dL (70-99) Calcium Level 9.4 mg/dL (8.5-10.1) Magnesium Level 2.0 mg/dL (1.8-2.4) Total Bilirubin 0.3 mg/dL (0.2-1.0) Aspartate Amino Transf (AST/SGOT) 27 U/L (15-37) Alanine Aminotransferase (ALT/SGPT) 39 U/L (16-63) Alkaline Phosphatase 56 U/L (46-116) Creatine Kinase 370 U/L (39-308) Creatine Kinase MB (Mass) 7.1 ng/mL (0.0-3.6) Creatine Kinase MB Relative Index 1.9 % (0-4) Troponin I Quantitative < 0.017 ng/mL (0.000-0.055) < 0.017 ng/mL (0.000-0.055) < 0.017 ng/mL (0.000-0.055) Total Protein 6.8 g/dL (6.4-8.2) Albumin 3.9 g/dL (3.4-5.0) Albumin/Globulin Ratio 1.3 (1.0-1.7) DH-Psm-K-Type Natriuretic Peptide 69 pg/mL (0-124) Triglycerides Level 182 mg/dL (0-150) Cholesterol Level 144 mg/dL (0-200) LDL Cholesterol, Calculated 76 mg/dL (0-100) VLDL Cholesterol, Calculated 36 mg/dL (0-40) Non-HDL Cholesterol Calculated 112 mg/dL (0-129) HDL Cholesterol 32 mg/dL (40-60) Cholesterol/HDL Ratio 4.5 Thyroid Stimulating Hormone (TSH) 1.356 uIU/mL (0.358-3.74) Free Thyroxine 0.99 ng/dL (0.76-1.46) Glucose (Fingerstick) 84 mg/dL (70-99) Laboratory Tests Test 12/28/18 16:30 12/28/18 20:10 12/29/18 03:50 12/29/18 12:01 White Blood Count 5.9 x10^3/uL (4.0-11.0) Red Blood Count 4.08 x10^6/uL (4.30-5.70) Hemoglobin 13.7 g/dL (13.0-17.5) Hematocrit 39.7 % (39.0-53.0) Mean Corpuscular Volume 97 fL (79-100) Mean Corpuscular Hemoglobin 34 pg (25-35) Mean Corpuscular Hemoglobin Concent 35 g/dL (31-37) Red Cell Distribution Width 13.8 % (11.5-14.5) Platelet Count 265 x10^3/uL (140-400) Neutrophils (%) (Auto) 56 % (31-73) Lymphocytes (%) (Auto) 30 % (24-48) Monocytes (%) (Auto) 8 % (0-9) Eosinophils (%) (Auto) 6 % (0-3) Basophils (%) (Auto) 1 % (0-3) Neutrophils # (Auto) 3.3 x10^3uL (1.8-7.7) Lymphocytes # (Auto) 1.8 x10^3/uL (1.0-4.8) Monocytes # (Auto) 0.5 x10^3/uL (0.0-1.1) Eosinophils # (Auto) 0.4 x10^3/uL (0.0-0.7) Basophils # (Auto) 0.0 x10^3/uL (0.0-0.2) Prothrombin Time 12.8 SEC (11.7-14.0) Prothromb Time International Ratio 1.0 (0.8-1.1) Sodium Level 139 mmol/L (136-145) Potassium Level 4.1 mmol/L (3.5-5.1) Chloride Level 105 mmol/L (98-107) Carbon Dioxide Level 24 mmol/L (21-32) Anion Gap 10 (6-14) Blood Urea Nitrogen 19 mg/dL (8-26) Creatinine 1.1 mg/dL (0.7-1.3) Estimated GFR (Cockcroft-Gault) 69.8 BUN/Creatinine Ratio 17 (6-20) Glucose Level 91 mg/dL (70-99) Calcium Level 9.4 mg/dL (8.5-10.1) Magnesium Level 2.0 mg/dL (1.8-2.4) Total Bilirubin 0.3 mg/dL (0.2-1.0) Aspartate Amino Transf (AST/SGOT) 27 U/L (15-37) Alanine Aminotransferase (ALT/SGPT) 39 U/L (16-63) Alkaline Phosphatase 56 U/L (46-116) Creatine Kinase 370 U/L (39-308) Creatine Kinase MB (Mass) 7.1 ng/mL (0.0-3.6) Creatine Kinase MB Relative Index 1.9 % (0-4) Troponin I Quantitative < 0.017 ng/mL (0.000-0.055) < 0.017 ng/mL (0.000-0.055) < 0.017 ng/mL (0.000-0.055) Total Protein 6.8 g/dL (6.4-8.2) Albumin 3.9 g/dL (3.4-5.0) Albumin/Globulin Ratio 1.3 (1.0-1.7) YR-Vcz-V-Type Natriuretic Peptide 69 pg/mL (0-124) Triglycerides Level 182 mg/dL (0-150) Cholesterol Level 144 mg/dL (0-200) LDL Cholesterol, Calculated 76 mg/dL (0-100) VLDL Cholesterol, Calculated 36 mg/dL (0-40) Non-HDL Cholesterol Calculated 112 mg/dL (0-129) HDL Cholesterol 32 mg/dL (40-60) Cholesterol/HDL Ratio 4.5 Thyroid Stimulating Hormone (TSH) 1.356 uIU/mL (0.358-3.74) Free Thyroxine 0.99 ng/dL (0.76-1.46) Glucose (Fingerstick) 84 mg/dL (70-99) Medications Current Medications Aspirin (Precious Aspirin) 325 mg 1X ONCE PO Last administered on 12/28/18at 16:37; Start 12/28/18 at 16:30; Stop 12/28/18 at 16:31; Status DC Nitroglycerin (Nitrostat) 0.4 mg PRN Q5MIN PRN SL CHEST PAIN Last administered on 12/28/18at 16:37; Start 12/28/18 at 16:30 Famotidine (Pepcid) 20 mg BID PO Last administered on 12/29/18at 11:46; Start 12/28/18 at 21:00 Lisinopril (Prinivil) 40 mg HS PO Last administered on 12/28/18at 21:36; Start 12/28/18 at 21:00 Trazodone HCl (Desyrel) 50 mg QHS PO Last administered on 12/28/18at 21:36; Start 12/28/18 at 21:00 Zolpidem Tartrate (Ambien) 5 mg PRN QHS PRN PO INSOMNIA, MAY REPEAT IN 1HR; Start 12/28/18 at 20:45 Enoxaparin Sodium (Lovenox Per Pharmacy Prophylaxis Dosing) 1 each PRN DAILY PRN MC SEE COMMENTS; Start 12/28/18 at 20:45 Enoxaparin Sodium (Lovenox 40mg Syringe) 40 mg Q24H SQ Last administered on 12/28/18at 21:37; Start 12/28/18 at 22:00 Active Scripts Active Reported Fenofibrate (Fenofibrate,Micronized) Unknown Strength Capsule Unknown Dose PO DAILY Metformin Hcl 1,000 Mg Tablet 1,000 Mg PO BIDWMEALS Lisinopril 40 Mg Tablet 1 Tab PO HS Trazodone Hcl 50 Mg Tablet 1 Tab PO QHS Vitals/I & O Vital Sign - Last 24 Hours 12/28/18 12/28/18 12/28/18 12/28/18 16:17 16:30 16:37 17:00 Temp 98.5 98.5 Pulse 70 60 69 64 Resp 16 B/P (MAP) 139/73 (95) 135/80 (98) 135/80 122/70 (87) Pulse Ox 95 96 96 O2 Delivery Room Air Room Air Room Air 12/28/18 12/28/18 12/28/18 12/28/18 17:30 18:00 18:30 19:00 Pulse 65 96 62 60 B/P (MAP) 119/72 (88) 120/73 (89) 133/83 (100) 140/80 (100) Pulse Ox 94 93 95 94 O2 Delivery Room Air Room Air Room Air Room Air 12/28/18 12/28/18 12/28/18 12/28/18 19:30 19:55 20:00 21:36 Temp 97.8 97.8 Pulse 60 69 Resp 16 B/P (MAP) 142/78 (99) 125/71 (89) 125/71 Pulse Ox 94 94 O2 Delivery Room Air Room Air Room Air 12/28/18 12/29/18 12/29/18 12/29/18 23:03 03:00 07:48 08:00 Temp 98.2 97.9 97.8 98.2 97.9 97.8 Pulse 66 86 68 Resp 16 18 18 B/P (MAP) 121/69 (86) 129/74 (92) 142/86 (104) Pulse Ox 95 96 97 O2 Delivery Room Air Room Air Room Air Room Air 12/29/18 11:27 Temp 98.0 98.0 Pulse 65 Resp 18 B/P (MAP) 140/72 (94) Pulse Ox 96 O2 Delivery Room Air Intake and Output 12/28/18 12/28/18 12/29/18 15:00 23:00 07:00 Intake Total 300 ml 300 ml Balance 300 ml 300 ml ABAD RAIN MD Dec 29, 2018 13:40
--- NOTE | 2018-12-29 13:53 | PDOC3 ---
Discharge Summary Date of Admission: Dec 28, 2018 Date of Discharge: Dec 29, 2018 Follow-Up: 3-5 days Admitting Diagnosis comment: discharge dx chest pain, angina troponin i ,,, neg x 3 r.o ACD Dm2, good control, reports A1c of 5.1 htn low HDL, on fibrate tobacco use disorder, obesity, BMI 31 The left ventricular systolic function is normal. 12/28/18 on echo The Ejection Fraction is 55-60%. There is normal LV segmental wall motion. Trace tricuspid valve regurgitation noted with an estimated PAP of 23 mmHg. There is no evidence of significant pericardial effusion. plan cvc bed cardiology consult ok with d/c today outpatient stress test, cardiology will arrange 24 min d/c planning time Vitals Vitals Vital Signs Date Time Temp Pulse Resp B/P (MAP) Pulse Ox O2 Delivery O2 Flow Rate FiO2 12/29/18 11:27 98.0 65 18 140/72 (94) 96 Room Air 98.0 Physical Exam General: Alert, Oriented X3, Cooperative, No acute distress Heart: Regular rate, Normal S1, Normal S2 Lungs: Clear Abdomen: Soft, No tenderness Extremities: No cyanosis, No edema, Normal pulses Skin: No breakdown, No significant lesion Labs LABS Pulmonary Valve PV Peak Velocity 88.0cm/s PV Peak Grad. 3mmHg Tricuspid Valve RAP ESTIMATE 3mmHg TR Peak Gr. 20mmHg RVSP 23mmHg Pulmonary Vein S1 Velocity 40.1cm/s D2 Velocity 42.0cm/s PVa duration 130msec LEFT VENTRICLE The left ventricle is normal size. There is normal left ventricular wall thickness. The left ventricular systolic function is normal. The Ejection Fraction is 55-60%. There is normal LV segmental wall motion. Transmitral Doppler flow pattern is Grade II-pseudonormal filling dynamics. RIGHT VENTRICLE The right ventricle is borderline dilated. There is normal right ventricular wall thickness. The right ventricular systolic function is normal. ATRIA The left atrium size is normal. The right atrium size is normal. The interatrial septum is intact with no evidence for an atrial septal defect or patent foramen ovale as noted on 2-D or Doppler imaging. AORTIC VALVE The aortic valve is thickened but opens well. Doppler and Color Flow revealed trace aortic regurgitation. There is no significant aortic valvular stenosis. MITRAL VALVE The mitral valve is normal in structure and function. There is no evidence of mitral valve prolapse. There is no mitral valve stenosis. Doppler and Color Flow revealed no mitral valve regurgitation noted. TRICUSPID VALVE The tricuspid valve is normal in structure and function. Doppler and Color Flow revealed trace tricuspid valve regurgitation noted with an estimated PAP of 23 mmHg. There is no tricuspid valve prolapse or vegetation. There is no tricuspid valve stenosis. PULMONIC VALVE The pulmonic valve is not well visualized. Doppler and Color Flow revealed no pulmonic valvular regurgitation. GREAT VESSELS The aortic root is normal in size. The IVC is normal in size and collapses >50% with inspiration. PERICARDIAL EFFUSION There is no evidence of significant pericardial effusion. Critical Notification Critical Value: No <Conclusion> The left ventricular systolic function is normal. The Ejection Fraction is 55-60%. There is normal LV segmental wall motion. Trace tricuspid valve regurgitation noted with an estimated PAP of 23 mmHg. There is no evidence of significant pericardial effusion. Signed by : Ismael Goodwin, Electronically Approved : 12/29/2018 09:40:56 DICTATED and SIGNED BY: ISMAEL GOODWIN MD DATE: 12/29/18 0940 [id number] CC: CYRUS SAGASTUME MD; EMELINA FRANKLIN MD; ISMAEL GOODWIN MD ~ Page of CHEST PA LATERAL History: Chest pain. COMPARISON: None FINDINGS: The heart size is nonenlarged. No evidence of infiltrate, pleural effusion or pneumothorax. Bones appear grossly intact. IMPRESSION: No evidence of consolidating infiltrate. Electronically signed by: Jadon Palencia MD (12/28/2018 4:22 PM) [facility] [place] FINAL DIAGNOSIS Problems Medical Problems: (1) Chest pain Status: Acute Brief Hospital Course Mr. Haynes is a 53 old [sex] who presented with [chest discomfort ] CONDITION AT DISCHARGE: Improved Discharge Medications Current Medications Aspirin (Precious Aspirin) 325 mg 1X ONCE PO Last administered on 12/28/18at 16:37; Start 12/28/18 at 16:30; Stop 12/28/18 at 16:31; Status DC Nitroglycerin (Nitrostat) 0.4 mg PRN Q5MIN PRN SL CHEST PAIN Last administered on 12/28/18at 16:37; Start 12/28/18 at 16:30 Famotidine (Pepcid) 20 mg BID PO Last administered on 12/29/18at 11:46; Start 12/28/18 at 21:00 Lisinopril (Prinivil) 40 mg HS PO Last administered on 12/28/18at 21:36; Start 12/28/18 at 21:00 Trazodone HCl (Desyrel) 50 mg QHS PO Last administered on 12/28/18at 21:36; Start 12/28/18 at 21:00 Zolpidem Tartrate (Ambien) 5 mg PRN QHS PRN PO INSOMNIA, MAY REPEAT IN 1HR; Start 12/28/18 at 20:45 Enoxaparin Sodium (Lovenox Per Pharmacy Prophylaxis Dosing) 1 each PRN DAILY PRN MC SEE COMMENTS; Start 12/28/18 at 20:45 Enoxaparin Sodium (Lovenox 40mg Syringe) 40 mg Q24H SQ Last administered on 12/28/18at 21:37; Start 12/28/18 at 22:00 Active Scripts Active Reported Fenofibrate (Fenofibrate,Micronized) Unknown Strength Capsule Unknown Dose PO DAILY Metformin Hcl 1,000 Mg Tablet 1,000 Mg PO BIDWMEALS Lisinopril 40 Mg Tablet 1 Tab PO HS Trazodone Hcl 50 Mg Tablet 1 Tab PO QHS Vital Signs Vital Signs Date Time Temp Pulse Resp B/P (MAP) Pulse Ox O2 Delivery O2 Flow Rate FiO2 12/29/18 11:27 98.0 65 18 140/72 (94) 96 Room Air 98.0 Labs Laboratory Tests Test 12/28/18 16:30 12/28/18 20:10 12/29/18 03:50 12/29/18 12:01 White Blood Count 5.9 x10^3/uL (4.0-11.0) Red Blood Count 4.08 x10^6/uL (4.30-5.70) Hemoglobin 13.7 g/dL (13.0-17.5) Hematocrit 39.7 % (39.0-53.0) Mean Corpuscular Volume 97 fL (79-100) Mean Corpuscular Hemoglobin 34 pg (25-35) Mean Corpuscular Hemoglobin Concent 35 g/dL (31-37) Red Cell Distribution Width 13.8 % (11.5-14.5) Platelet Count 265 x10^3/uL (140-400) Neutrophils (%) (Auto) 56 % (31-73) Lymphocytes (%) (Auto) 30 % (24-48) Monocytes (%) (Auto) 8 % (0-9) Eosinophils (%) (Auto) 6 % (0-3) Basophils (%) (Auto) 1 % (0-3) Neutrophils # (Auto) 3.3 x10^3uL (1.8-7.7) Lymphocytes # (Auto) 1.8 x10^3/uL (1.0-4.8) Monocytes # (Auto) 0.5 x10^3/uL (0.0-1.1) Eosinophils # (Auto) 0.4 x10^3/uL (0.0-0.7) Basophils # (Auto) 0.0 x10^3/uL (0.0-0.2) Prothrombin Time 12.8 SEC (11.7-14.0) Prothromb Time International Ratio 1.0 (0.8-1.1) Sodium Level 139 mmol/L (136-145) Potassium Level 4.1 mmol/L (3.5-5.1) Chloride Level 105 mmol/L (98-107) Carbon Dioxide Level 24 mmol/L (21-32) Anion Gap 10 (6-14) Blood Urea Nitrogen 19 mg/dL (8-26) Creatinine 1.1 mg/dL (0.7-1.3) Estimated GFR (Cockcroft-Gault) 69.8 BUN/Creatinine Ratio 17 (6-20) Glucose Level 91 mg/dL (70-99) Calcium Level 9.4 mg/dL (8.5-10.1) Magnesium Level 2.0 mg/dL (1.8-2.4) Total Bilirubin 0.3 mg/dL (0.2-1.0) Aspartate Amino Transf (AST/SGOT) 27 U/L (15-37) Alanine Aminotransferase (ALT/SGPT) 39 U/L (16-63) Alkaline Phosphatase 56 U/L (46-116) Creatine Kinase 370 U/L (39-308) Creatine Kinase MB (Mass) 7.1 ng/mL (0.0-3.6) Creatine Kinase MB Relative Index 1.9 % (0-4) Troponin I Quantitative < 0.017 ng/mL (0.000-0.055) < 0.017 ng/mL (0.000-0.055) < 0.017 ng/mL (0.000-0.055) Total Protein 6.8 g/dL (6.4-8.2) Albumin 3.9 g/dL (3.4-5.0) Albumin/Globulin Ratio 1.3 (1.0-1.7) AS-Bpc-E-Type Natriuretic Peptide 69 pg/mL (0-124) Triglycerides Level 182 mg/dL (0-150) Cholesterol Level 144 mg/dL (0-200) LDL Cholesterol, Calculated 76 mg/dL (0-100) VLDL Cholesterol, Calculated 36 mg/dL (0-40) Non-HDL Cholesterol Calculated 112 mg/dL (0-129) HDL Cholesterol 32 mg/dL (40-60) Cholesterol/HDL Ratio 4.5 Thyroid Stimulating Hormone (TSH) 1.356 uIU/mL (0.358-3.74) Free Thyroxine 0.99 ng/dL (0.76-1.46) Glucose (Fingerstick) 84 mg/dL (70-99) Laboratory Tests Test 12/28/18 16:30 12/28/18 20:10 12/29/18 03:50 12/29/18 12:01 White Blood Count 5.9 x10^3/uL (4.0-11.0) Red Blood Count 4.08 x10^6/uL (4.30-5.70) Hemoglobin 13.7 g/dL (13.0-17.5) Hematocrit 39.7 % (39.0-53.0) Mean Corpuscular Volume 97 fL (79-100) Mean Corpuscular Hemoglobin 34 pg (25-35) Mean Corpuscular Hemoglobin Concent 35 g/dL (31-37) Red Cell Distribution Width 13.8 % (11.5-14.5) Platelet Count 265 x10^3/uL (140-400) Neutrophils (%) (Auto) 56 % (31-73) Lymphocytes (%) (Auto) 30 % (24-48) Monocytes (%) (Auto) 8 % (0-9) Eosinophils (%) (Auto) 6 % (0-3) Basophils (%) (Auto) 1 % (0-3) Neutrophils # (Auto) 3.3 x10^3uL (1.8-7.7) Lymphocytes # (Auto) 1.8 x10^3/uL (1.0-4.8) Monocytes # (Auto) 0.5 x10^3/uL (0.0-1.1) Eosinophils # (Auto) 0.4 x10^3/uL (0.0-0.7) Basophils # (Auto) 0.0 x10^3/uL (0.0-0.2) Prothrombin Time 12.8 SEC (11.7-14.0) Prothromb Time International Ratio 1.0 (0.8-1.1) Sodium Level 139 mmol/L (136-145) Potassium Level 4.1 mmol/L (3.5-5.1) Chloride Level 105 mmol/L (98-107) Carbon Dioxide Level 24 mmol/L (21-32) Anion Gap 10 (6-14) Blood Urea Nitrogen 19 mg/dL (8-26) Creatinine 1.1 mg/dL (0.7-1.3) Estimated GFR (Cockcroft-Gault) 69.8 BUN/Creatinine Ratio 17 (6-20) Glucose Level 91 mg/dL (70-99) Calcium Level 9.4 mg/dL (8.5-10.1) Magnesium Level 2.0 mg/dL (1.8-2.4) Total Bilirubin 0.3 mg/dL (0.2-1.0) Aspartate Amino Transf (AST/SGOT) 27 U/L (15-37) Alanine Aminotransferase (ALT/SGPT) 39 U/L (16-63) Alkaline Phosphatase 56 U/L (46-116) Creatine Kinase 370 U/L (39-308) Creatine Kinase MB (Mass) 7.1 ng/mL (0.0-3.6) Creatine Kinase MB Relative Index 1.9 % (0-4) Troponin I Quantitative < 0.017 ng/mL (0.000-0.055) < 0.017 ng/mL (0.000-0.055) < 0.017 ng/mL (0.000-0.055) Total Protein 6.8 g/dL (6.4-8.2) Albumin 3.9 g/dL (3.4-5.0) Albumin/Globulin Ratio 1.3 (1.0-1.7) VL-Qgz-V-Type Natriuretic Peptide 69 pg/mL (0-124) Triglycerides Level 182 mg/dL (0-150) Cholesterol Level 144 mg/dL (0-200) LDL Cholesterol, Calculated 76 mg/dL (0-100) VLDL Cholesterol, Calculated 36 mg/dL (0-40) Non-HDL Cholesterol Calculated 112 mg/dL (0-129) HDL Cholesterol 32 mg/dL (40-60) Cholesterol/HDL Ratio 4.5 Thyroid Stimulating Hormone (TSH) 1.356 uIU/mL (0.358-3.74) Free Thyroxine 0.99 ng/dL (0.76-1.46) Glucose (Fingerstick) 84 mg/dL (70-99) Allergies Allergies Coded Allergies Type Severity Reaction Last Updated Verified cephalexin Allergy Intermediate Rash 12/29/18 Yes Disposition/Orders: D/C to Home Patient Instructions d/c planning 24 min ABAD RAIN MD Dec 29, 2018 13:53
[2018-12-29] MEDS ORDERED: FAMO20TA5 PO (13:54)
--- NOTE | 2018-12-29 13:56 | DISCH ---
DISCHARGE INSTRUCTIONS Condition on Discharge Condition on Discharge: Stable Activity After Discharge Activity Instructions for Disc: Activity as tolerated Lifting Instructions after Dis: No heavy lifting Exercise Instruction after Dis: Walk 10 min, 3 x per day Driving Instructions after Dis: Do not drive today Diet after Discharge Diet after Discharge: Cardiac Checks after Discharge Checks after discharge: Check blood press - daily Contacting the after DC Call your doctor for: If your condition worsens Warfarin Follow-Up Warfarin Follow UP: call cardiology for stress test this week ABAD RAIN MD Dec 29, 2018 13:56
[2018-12-29 14:27] VITALS: BP 142/88
--- NOTE | 2018-12-29 14:40 | NUR ---
Discharge Note: [facility] Discharge instructions and discharge home medications reviewed with Patient and a copy given. All questions have been answered and understanding verbalized. Follow up appointment information given to patient. The following instructions and handouts were given: chest pain, stress test information, and new medication: famotidine Discontinued lines and drains: Peripheral IV intact. Patient discharged to Home or Self Care with Spouse via Ambulated
== END 2018-12-29 14:42 | disposition home or self-care (01) ==
LOC: ER 15:43 → 2 NORTH 17:18 → MERGE 17:18
PROVIDERS: ADMIT Internal Medicine; ATTEND Internal Medicine
DX: I20.9 Angina pectoris, unspecified (principal); E11.9 Type 2 diabetes mellitus without complications; E78.00 Pure hypercholesterolemia, unspecified; F32.9 Major depressive disorder, single episode, unspecified; I10 Essential (primary) hypertension; E66.9 Obesity, unspecified; Z68.31 Body mass index [BMI] 31.0-31.9, adult; F17.210 Nicotine dependence, cigarettes, uncomplicated; K75.0 Abscess of liver
CPT/HCPCS: 36415; 71046; 80053; 80061; 82553; 82962; 83735; 83880; 84439; 84443; 84484; 85025; 85610; 93005; 93306; 96372; 99284; G0378; J1650; G0379

== ENCOUNTER → 2019-01-05 | Outpatient (CLI) | payer BC ==
[2018-12-29 14:27] VITALS: BP 142/88
[~2019-01-05] MED LIST changes: +FAMO20TA5 PO; +METF10007 PO
--- NOTE | 2019-01-05 13:03 | RAD ---
MR#: [id number] Date of Study: 01/05/2019 Ordering Physician: CHITO DUBON Referring Physician: LISA MCCRARY Tech: APPROVED REPORT Test Type: Exercise Stress Nurse/Tech: Xi Schrader RN Test Indications: PAD Cardiac History: Hypertension, Diabetes,smoker Medications: See Electronic Medical Record Medical History: See Electronic Medical Record Resting ECG: SR Resting Heart Rate: 77 bpm Resting Blood Pressure: 132/65mmHg Pretest Chest Pain: No chest pain Nurse/Tech Notes S1,S2 and lungs clear to auscultation. Consent: The procedure was explained to the patient in lay terms. Informed consent was witnessed. Keven eout was entered into [employer]. History and Stress Test performed by RT Victor Manuel (R) (N) Stress Symptoms Fatigue POST EXERCISE Reason for Termination: Fatigue, Reached target heart rate Target HR: Yes Max HR: 149 bpm 105% of Maximum Predicted HR: 141 bpm Exercise duration: 9:58 min:sec, 4 Stage Exercise capacity: 13.4METs Max Blood Pressure: 152/78mmHg Blood Pressure response to exercise: Normal blood pressure response during stress. Heart Rate response to exercise: WNL Chest Pain: No. Arrhythmia: No. ST Change: No. INTERPRETATION Stress EKG Conclusion: Baseline EKG showed sinus rhythm. No ischemic changes at peak stress. No arr hythmias. Conclusion 1. Treadmill exercise stress electrocardiogram did not show any diagnostic evidence of ischemia. Isabelle ent had good activity tolerance. Signed by : Candido Muñoz, Electronically Approved : 01/05/2019 13:03:14
== END | disposition home or self-care (01) ==
LOC: NM 10:45
PROVIDERS: ATTEND Internal Medicine Cardiovascular Disease
DX: E11.51 Type 2 diabetes mellitus with diabetic peripheral angiopathy without gangrene (principal); I10 Essential (primary) hypertension; Z87.891 Personal history of nicotine dependence; Z79.01 Long term (current) use of anticoagulants
CPT/HCPCS: 93017

== ENCOUNTER → 2019-01-28 | Outpatient (CLI) | payer BC ==
[2018-12-29 14:27] VITALS: BP 142/88
--- NOTE | 2019-01-28 14:59 | KCIC ---
EXAM: Cervical spine MRI without contrast. HISTORY: Cervical radiculopathy. Bilateral arm numbness. TECHNIQUE: Multiplanar, multisequence magnetic resonance imaging of the cervical spine was performed without contrast. COMPARISON: None. FINDINGS: The exam is limited due to motion. There is mild cervical kyphosis centered at C4-C5. There is minimal retrolisthesis of C5 on C6 and C6 on C7. There is degenerative endplate remodeling at all levels. Associated with edema along the right endplates at C5-C6. There is no suspicious osseous lesion. There is no acute or subacute fracture. There is mild cerebellar tonsillar ectopia There is slight deformation of the cervical spinal cord at multiple levels due to central canal stenosis. No convincing cervical spinal cord lesion is seen, with evaluation limited due to motion. There is suspected congenital narrowing of the cervical canal at C3-C6. At C2-C3, there is minimal endplate remodeling. There is mild bilateral facet arthropathy. There is mild right foraminal stenosis. At C3-C4, there is a left paracentral to foraminal disc protrusion superimposed on a disc bulge and left posterior lateral predominant endplate remodeling. There is mild to moderate bilateral facet arthropathy. There is left uncovertebral arthropathy. There is mild right and severe left foraminal stenosis. There is deformation of the ventral aspect of the spinal cord and mild central canal stenosis measuring 8.7 mm in anterior posterior dimension. At C4-C5, there is a broad-based posterior central disc protrusion superimposed on a disc bulge and endplate remodeling. There is mild bilateral facet arthropathy. There is bilateral uncovertebral arthropathy. There is moderate bilateral foraminal stenosis. There is deformation of the spinal cord and mild to moderate central canal stenosis measuring 8.1 mm in anterior posterior dimension. At C5-C6, there is a posterior central disc protrusion superimposed on a disc bulge and endplate remodeling. There is moderate bilateral facet arthropathy. There is bilateral uncovertebral therapy. There is severe right and moderate left foraminal stenosis. There is deformation of the ventral aspect of the spinal cord and mild central canal stenosis measuring 9.0 mm in anterior posterior dimension. At C6-C7, there is a disc bulge and endplate remodeling. There is moderate bilateral facet arthropathy. There is bilateral uncovertebral arthropathy. There is moderate bilateral foraminal stenosis. IMPRESSION: 1. Significantly limited exam due to patient motion. 2. Multilevel degenerative change throughout the cervical spine, described in detail above. This is associated with foraminal and central canal stenosis at the forementioned levels. 3. Suboptimal evaluation for a spinal cord lesion due to aforementioned motion. No convincing signal change is seen on axial images to suggest edema, demyelination or myelomalacia. 4. Mild cervical kyphosis. 5. Mild cerebellar tonsillar ectopia. This is not clearly within limits to suggest acute or malformation. Electronically signed by: Harper Walls MD (01/28/2019 2:57 PM) [facility]
== END | disposition home or self-care (01) ==
LOC: KCIC MRI 13:34
PROVIDERS: ATTEND Orthopaedic Surgery
DX: M47.22 Other spondylosis with radiculopathy, cervical region (principal); M48.02 Spinal stenosis, cervical region; M50.11 Cervical disc disorder with radiculopathy, high cervical region; M40.292 Other kyphosis, cervical region; M53.82 Other specified dorsopathies, cervical region; M12.88 Other specific arthropathies, not elsewhere classified, other specified site; F40.240 Claustrophobia
CPT/HCPCS: 72141

== ENCOUNTER → 2019-04-13 | Outpatient (CLI) | payer BC ==
--- NOTE | 2019-04-13 12:02 | KCIC ---
EXAM: MRI left shoulder DATE: 04/13/2019 8:45 AM COMPARISON: None INDICATION: LEFT SHOULDER PAIN - Lt shoulder pain and decreased ROM TECHNIQUE: Multiplanar, multisequence MRI of the left shoulder was performed without contrast. FINDINGS: Moderate AC joint degenerative changes are seen with small anterior projecting osteophytes. No os acromiale. Type II acromion. Subacromial-subdeltoid bursal fluid likely from full-thickness rotator cuff tear described below and associated bursitis. Small left glenohumeral joint effusion. Full-thickness, full width tear of the supraspinatus tendon and full-thickness, partial width tear of the infraspinatus tendon is seen measuring approximately 3.6 cm in total AP dimension. Tendinous retraction to the level of the distal acromion. Moderate tendinosis of the residual infraspinatus tendon. Background of moderate tendinosis of the subscapularis tendon with at least partial thickness tear and disruption of the transverse ligament and resultant lateral dislocation of the biceps tendon. Mild fatty atrophy of the supraspinatus tendon with mild edema within the supraspinatus and infraspinatus tendons. Otherwise normal muscle signal and bulk within the rotator cuff. Moderate increased signal and thickening of the intra-articular long head biceps tendon, moderate tendinosis. Labral irregularity inferiorly consistent with labral tear, from 4-6:00. No evidence for fracture or AVN. No discrete full-thickness cartilage defect is seen although there is chondral thinning superiorly. IMPRESSION: 1. Full-thickness, full width tear of the supraspinatus tendon with full-thickness, partial width tear of the infraspinatus tendon measuring 3.6 cm in AP dimension. Associated retraction to the level of the distal acromion. Mild fatty atrophy supraspinatus muscle belly. 2. Partial-thickness tear of the superficial fibers of the subscapularis with transverse ligament tear and resultant lateral dislocation of the long head biceps tendon with moderate tendinosis. 3. Posterior-inferior labral tear/degeneration. Electronically signed by: John Kothari MD (04/13/2019 11:59 AM) [facility]
== END | disposition home or self-care (01) ==
LOC: KCIC MRI 08:22
PROVIDERS: ATTEND Orthopaedic Surgery
DX: S46.012A Strain of muscle(s) and tendon(s) of the rotator cuff of left shoulder, initial encounter (principal); S43.492A Other sprain of left shoulder joint, initial encounter; M25.712 Osteophyte, left shoulder; M25.412 Effusion, left shoulder; M19.012 Primary osteoarthritis, left shoulder; X58.XXXA Exposure to other specified factors, initial encounter; Y93.89 Activity, other specified; Y92.89 Other specified places as the place of occurrence of the external cause; Y99.8 Other external cause status
CPT/HCPCS: 73221

== ENCOUNTER 2019-04-22 06:41 | Day surgery (SDC) | payer BC ==
[~2019-04-22 06:41] MED LIST changes: +CLINDAMYCIN 900MG PREMIX 50 ML IV ONE
[2019-04-22] MEDS ORDERED: fentaNYL PF VIAL 100 MCG/2 ML VIAL IV PRN (07:00)
[2019-04-22] MEDS ORDERED: IV RINGERS,LACTATED 1000ML 1,000 ML IV SCH (07:00)
[2019-04-22] MEDS ORDERED: LIDOCAINE 1% PF 2 ML VIAL. ID PRN (07:00)
[2019-04-22] MEDS ORDERED: PROCHLORPERAZINE 10 MG/2 ML VIAL. IV PRN (07:00)
[2019-04-22] MEDS ORDERED: ONDANSETRON PF 4 MG/2 ML VIAL. IV PRN (07:00)
[2019-04-22] MEDS ORDERED: HYDROmorphone 2 MG/ML VIAL IV PRN (07:00)
[2019-04-22] MEDS ORDERED: ROCURONIUM 50 MG/5 ML VIAL. ONE (07:37)
[2019-04-22] MEDS ORDERED: LIDOCAINE 2% PF 5 ML VIAL. ONE (07:37)
[2019-04-22] MEDS ORDERED: fentaNYL PF VIAL 100 MCG/2 ML VIAL ONE ×3 (07:37→11:05)
[2019-04-22] MEDS ORDERED: PROPOFOL 20 ML IV ONE (07:37)
[2019-04-22 07:41] LABS: BASO % 1 % (0-3); EOS # 0.2 x10^3/uL (0.0-0.7); EOS % 4 % (0-3); HEMATOCRIT 39.1 % (39.0-53.0); HEMOGLOBIN 13.4 g/dL (13.0-17.5); LYMPH # 1.4 x10^3/uL (1.0-4.8); LYMPH % 27 % (24-48); MEAN CORPUSCULAR HEMOGLOBIN 33 pg (25-35); MEAN CORPUSCULAR HGB CONC 34 g/dL (31-37); MEAN CORPUSCULAR VOLUME 97 fL (79-100); MONO # 0.5 x10^3/uL (0.0-1.1); MONO % 11 % (0-9); NEUT % 58 % (31-73); PLATELET COUNT 288 x10^3/uL (140-400); RED BLOOD COUNT 4.05 x10^6/uL (4.30-5.70); RED CELL DISTRIBUTION WIDTH 13.2 % (11.5-14.5); WHITE BLOOD COUNT 5.2 x10^3/uL (4.0-11.0)
[2019-04-22] MEDS ORDERED: INSULIN LISPRO 100 UNIT/ML 3ML VIAL for OP,RR ONLY. SQ PRN (07:45)
[2019-04-22] MEDS ORDERED: EPINEPHrine VIAL 30 MG/30 ML VIAL ONE (07:48)
[2019-04-22] MEDS ORDERED: LIDOCAINE 1%/EPI 1:100,000 20 ML VIAL. ONE (07:48)
[2019-04-22 07:54] LABS: CALCIUM 8.4 mg/dL (8.5-10.1); CREATININE 0.8 mg/dL (0.7-1.3); GFR 100.7; POTASSIUM 4.2 mmol/L (3.5-5.1)
[2019-04-22] MEDS ORDERED: BUPIVACAINE-EPI 0.25%-1:200000 MPF 30 ML VIAL. INJ ONE (08:00)
--- NOTE | 2019-04-22 08:15 | PDOC ---
PROGRESS NOTES Subjective Subjective The patient is a 53 year old male who presents today with a full-thickness, full width tear of the supraspinatus tendon with full-thickness, partial width tear of the infraspinatus tendon and partial thickness tear of the subscapularis. His pain originally began 2 or 3 months ago when he fell and landed on his left side. He works in a warehouse and drives a forklift. He is a current smoker but is in the process of quitting. Objective Vital Signs Vital Signs Date Time Temp Pulse Resp B/P (MAP) Pulse Ox O2 Delivery O2 Flow Rate FiO2 04/22/19 07:22 98.0 69 18 135/77 97 Room Air 98.0 Physical Exam Left shoulder: Tenderness to palpation over the anterolateral humerus. No tenderness to palpation over the bicipital groove or AC joint. Active range of motion: FE: 140, ER: 15 4/5 strength with resisted FE 4+/5 strength with resisted ER negative belly press Labs Laboratory Tests Test 04/22/19 07:20 White Blood Count 5.2 x10^3/uL (4.0-11.0) Red Blood Count 4.05 x10^6/uL (4.30-5.70) Hemoglobin 13.4 g/dL (13.0-17.5) Hematocrit 39.1 % (39.0-53.0) Mean Corpuscular Volume 97 fL (79-100) Mean Corpuscular Hemoglobin 33 pg (25-35) Mean Corpuscular Hemoglobin Concent 34 g/dL (31-37) Red Cell Distribution Width 13.2 % (11.5-14.5) Platelet Count 288 x10^3/uL (140-400) Neutrophils (%) (Auto) 58 % (31-73) Lymphocytes (%) (Auto) 27 % (24-48) Monocytes (%) (Auto) 11 % (0-9) Eosinophils (%) (Auto) 4 % (0-3) Basophils (%) (Auto) 1 % (0-3) Neutrophils # (Auto) 3.0 x10^3/uL (1.8-7.7) Lymphocytes # (Auto) 1.4 x10^3/uL (1.0-4.8) Monocytes # (Auto) 0.5 x10^3/uL (0.0-1.1) Eosinophils # (Auto) 0.2 x10^3/uL (0.0-0.7) Basophils # (Auto) 0.0 x10^3/uL (0.0-0.2) Sodium Level 142 mmol/L (136-145) Potassium Level 4.2 mmol/L (3.5-5.1) Chloride Level 106 mmol/L (98-107) Carbon Dioxide Level 25 mmol/L (21-32) Anion Gap 11 (6-14) Blood Urea Nitrogen 12 mg/dL (8-26) Creatinine 0.8 mg/dL (0.7-1.3) Estimated GFR (Cockcroft-Gault) 100.7 Glucose Level 99 mg/dL (70-99) Calcium Level 8.4 mg/dL (8.5-10.1) Laboratory Tests Test 04/22/19 07:20 White Blood Count 5.2 x10^3/uL (4.0-11.0) Red Blood Count 4.05 x10^6/uL (4.30-5.70) Hemoglobin 13.4 g/dL (13.0-17.5) Hematocrit 39.1 % (39.0-53.0) Mean Corpuscular Volume 97 fL (79-100) Mean Corpuscular Hemoglobin 33 pg (25-35) Mean Corpuscular Hemoglobin Concent 34 g/dL (31-37) Red Cell Distribution Width 13.2 % (11.5-14.5) Platelet Count 288 x10^3/uL (140-400) Neutrophils (%) (Auto) 58 % (31-73) Lymphocytes (%) (Auto) 27 % (24-48) Monocytes (%) (Auto) 11 % (0-9) Eosinophils (%) (Auto) 4 % (0-3) Basophils (%) (Auto) 1 % (0-3) Neutrophils # (Auto) 3.0 x10^3/uL (1.8-7.7) Lymphocytes # (Auto) 1.4 x10^3/uL (1.0-4.8) Monocytes # (Auto) 0.5 x10^3/uL (0.0-1.1) Eosinophils # (Auto) 0.2 x10^3/uL (0.0-0.7) Basophils # (Auto) 0.0 x10^3/uL (0.0-0.2) Sodium Level 142 mmol/L (136-145) Potassium Level 4.2 mmol/L (3.5-5.1) Chloride Level 106 mmol/L (98-107) Carbon Dioxide Level 25 mmol/L (21-32) Anion Gap 11 (6-14) Blood Urea Nitrogen 12 mg/dL (8-26) Creatinine 0.8 mg/dL (0.7-1.3) Estimated GFR (Cockcroft-Gault) 100.7 Glucose Level 99 mg/dL (70-99) Calcium Level 8.4 mg/dL (8.5-10.1) Assessment Assessment Traumatic complete tear of the left rotator cuff Plan Plan of Care The patient is a 53 year old left-hand dominant male who presents today with a full-thickness, full width tear of the supraspinatus tendon with full-thickness, partial width tear of the infraspinatus tendon and partial thickness tear of the subscapularis. We discussed non-operative versus operative treatment of the patient's left rotator cuff tear. The risks of surgery including the risk of undergoing anesthesia, bleeding, infection, nerve damage, malunion, and nonunion, blood clots were discussed at length. The benefits of surgery including pain relief and functional improvement of the left shoulder were also discussed. We also discussed the postoperative course of immobilization, weight restrictions, and physical therapy required after surgery. After a thorough discussion of the risks and benefits of a diagnostic shoulder arthroscopy and rotator cuff repair of his left shoulder the patient elected to proceed with surgery. The patient exhibited understanding of the risks and benefits of surgery, and all questions were answered. A written consent was obtained. Follow up with Dr. Gong in 7-10 days FRANCA KURTZ Apr 22, 2019 08:14
[2019-04-22] MEDS ORDERED: DEXAMETHASONE SOD PHOS 4 MG/ML VIAL ONE (09:02)
[2019-04-22] MEDS ORDERED: DESFLURANE 61 TO 120 MINUTES IH ONE (09:02)
[2019-04-22] MEDS ORDERED: NEOSTIGMINE METHYLSULFATE 5 MG/5 ML SYRINGE. ONE (09:24)
[2019-04-22] MEDS ORDERED: ONDANSETRON PF 4 MG/2 ML VIAL. ONE (09:24)
[2019-04-22] MEDS ORDERED: GLYCOPYRROLATE 1 MG/5 ML VIAL. ONE (09:24)
[2019-04-22] MEDS ORDERED: METOPROLOL TARTRATE 5 MG/5 ML VIAL. IVP ONE (09:27)
[2019-04-22] MEDS: fentaNYL PF VIAL 100 MCG/2 ML VIAL IV PRN ×2 (11:12→11:41)
--- NOTE | 2019-04-22 11:14 | PDOC ---
BRIEF OPERATIVE NOTE Date: Apr 22, 2019 Pre-Op Diagnosis Traumatic left rotator cuff tear Post-Op Diagnosis Same Procedure Performed Left diagnostic shoulder arthroscopy with mini-open rotator cuff repair, open subpectoral biceps tenodesis Surgeon Maribel Gong MD Electrical Engineering Teacher JENNIFER RoperC Anesthesiologist VICKY Marion Anesthesia Type: General Blood Loss 10 ml Findings Left rotator cuff tear Complications None Operative Note To PACU in stable condition FRANCA KURTZ Apr 22, 2019 11:14
[2019-04-22] MEDS: MORPHINE SULFATE 2 MG/ML VIAL. IV PRN ×2 (11:15→11:42)
[2019-04-22] MEDS ORDERED: SENN-200 PO (11:17)
[2019-04-22] MEDS ORDERED: HYDR25CA PO (11:17)
[2019-04-22] MEDS ORDERED: OXYC5CAP PO (11:18)
[2019-04-22] MEDS ORDERED: MIDAZOLAM HCL/PF 2 MG/2 ML VIAL. ONE (11:30)
[2019-04-22] MEDS ORDERED: ROPIVacaine 0.5% PF 20 ML VIAL. ONE (11:30)
--- NOTE | 2019-04-22 11:37 | PDOC4 ---
Operative Note Operative Note Operative Report Date of Operation: 04/22/2019 Preoperative Diagnosis: 1. Left complete rotator cuff tear, M75.122 2. Biceps tendonitis, M75.22 Postoperative diagnosis: Same Operation Performed: 1. Diagnostic Shoulder arthroscopy with extensive debridement, CPT 74129 2. Mini-open double-row rotator cuff repair, CPT 75026 3. Open subpectoral biceps tenodesis, CPT 35396 Surgeon: Maribel Fleming MD Classification Case Manager: Meg Bryant PA-C Anesthesia: general Estimated blood loss: 10 cc Implants: 2 5.5 mm triple loaded [place] Quattro X double-loaded anchors medially, 2 4.5 mm quattro link knotless anchors laterally, 2.9 mm juggernaut Surgical indication: The patient is a 53 year old left hand dominant male who has severe left shoulder pain located anteriorly and laterally who has failed conservative treatment and presents now for the above stated procedure after the risks and benefits were explained in the clinic. A written consent was obtained. Findings: flattening, erythema, and fibrillation of the intra-articular biceps tendon. high grade partial thickness tear and inflammation of the subscapularis. Complete tear of the supraspintaus and infraspinatus, retracted to the level of the midhumeral head. cartilage surfaces were intact. bony osteophytes over the greater tuberosity. Description of the Procedure: The patient was identified, marked, and the procedure confirmed by myself prior to taking them to the operating room. IV antibiotics were given preoperatively. Clindamycin due to his keflex allergy. The patient was positioned appropriately in the beach chair position and underwent adequate general anesthesia. The right arm was prepped and draped in a standard surgical fashion. The portals were preinjected with 1 percent lidocaine with epi and the subacromial space with 0.25% marcaine. An 11 blade was used to create a posterior portal followed by a rotator interval portal and a diagnostic arthroscopy was performed with the above said findings. The biceps tendon was then tenotomized in anticipation of the open tenodesis. The motorized shaver was introduced through the anterior portal to debride the intra-articular portion of the biceps tendon, the frayed labrum, the undersurface of the rotator cuff tear, the high grade partial thickness subscapularis tear, the greater tuberosity, and loose cartilage flaps on the superior and anterior glenoid. This completes the extensive debridement. The arthroscope was then placed into the subacromial space where there was extensive thickened bursae. It was debrided to reveal the complete and retracted rotator cuff tear to the level of the midhumerus. After debriding the greater tuberosity and some of the bursae with the shaver, we terminated the arthroscopic portion of the case. His tendon was reducible to the footprint and appeared to be decent quality at least posteriorly. The shoulder was reprepped and a 3 inch anterolateral incision was made around my lateral portal. The deltoid muscle was spread, ensuring I stayed proximal to the axillary nerve. The large retracted tear and diseased greater tuberosity was revealed. I used a rasp and rongeur to take down bone spurs. I grasped the tendon with a grasper and performed more releases with a liberator until it was fully reducible to the footprint for a tension free repair. The posterior cuff had an intrasubstance component to it as well. The footprint was further prepared with a rasp to a bleeding surface. 2 5.5 triple loaded anchors were placed off the medial footprint 1 cm apart in the AP dimension. The suture limbs were passed while my assistant refinery operator maintained traction on the leading edge of the cuff tear with a tag suture. After all the limbs were passed, I tied from posterior to anterior and the medial aspect of the footprint was well established. I the suture tails and they were placed into a lateral row of two 4.5 mm lynk knotless anchors laterally, compressing the tendon to the footprint. At that time the footprint was well established, the repair was solid, and moved as a unit without being overly tensioned. The wound was irrigated thoroughly. The deltoid was repaired with 0 PDS and my assistant refinery operator closed the skin with 3-0 monocryl and prineo. At that time my attention was turned to the biceps for repair. I reprepped his axillary incision with chloraprep, and after a 3 minute dry time made an incision through the skin with a fresh blade. I bluntly dissected beneath the deltoid and pec and located the biceps tendon in the groove. It was very scarred into the groove. I removed it with a tonsil. It was flattened and diseased. The 2.9 mm juggernaut anchor was placed into the proximal bicipital groove under direct visualization. I then cinched the anchor and used the suture tails to agusto 2.5 cm of the tendon. I tied the suture tails together and then used the sister sutures to shuttle the biceps tendon into the groove. I tied the tails over the tendon. It was placed in the bicipital groove for a tension free repair. Hemostasis was obtained. Copious irrigation was performed and the incision was closed by my assistant refinery operator with 3-0 monocryl and aracelis. This completes the open subpectoral biceps tenodesis, CPT 38135. Operative sites were cleaned and dried and sterile dressings were applied. The patient was placed in a well padded sling and transferred to the recovery room awake, alert, and in stable condition. I was present for the entire case. Complications: none Postoperative plan: hand wrist rom only. fu in 7-10 days. MARIBEL FLEMING MD Apr 22, 2019 11:36
[2019-04-22] MEDS ORDERED: oxyCODONE IR 5 MG TABLET PO ONE (12:00)
[2019-04-22 12:45] VITALS: BP 149/83
[2019-04-23 01:08] LABS: HEMOGLOBIN A1C 5.3 % (4.8-5.6)
== END 2019-04-22 13:05 | disposition home or self-care (01) ==
LOC: SURG 06:41
PROVIDERS: ATTEND Orthopaedic Surgery
DX: M75.22 Bicipital tendinitis, left shoulder (principal); M75.122 Complete rotator cuff tear or rupture of left shoulder, not specified as traumatic; I11.9 Hypertensive heart disease without heart failure; E11.9 Type 2 diabetes mellitus without complications; F41.9 Anxiety disorder, unspecified; F32.9 Major depressive disorder, single episode, unspecified; G43.909 Migraine, unspecified, not intractable, without status migrainosus; F17.210 Nicotine dependence, cigarettes, uncomplicated; F19.90 Other psychoactive substance use, unspecified, uncomplicated; Z79.82 Long term (current) use of aspirin; Z98.890 Other specified postprocedural states; Z72.89 Other problems related to lifestyle; Z88.8 Allergy status to other drugs, medicaments and biological substances; Z79.84 Long term (current) use of oral hypoglycemic drugs
CPT/HCPCS: 23412; 23430; 29823; 36415; 80048; 82962; 83036; 85025; 86850; 86900; 86901; A7015; C1713; C1782; J0171; J0780; J1100; J2001; J2270; J2405; J2704; J2710; J2795; J3010; J3490; J7120; J2250

== ENCOUNTER → 2019-12-05 | Outpatient (CLI) | payer BC ==
[~2019-12-05] MED LIST changes: -CLINDAMYCIN 900MG PREMIX 50 ML IV ONE; +HYDR25CA PO; +OXYC5CAP PO; +SENN-200 PO
--- NOTE | 2019-12-05 15:56 | KCIC ---
CT UPPR EXTREMTY WO CONTRST RT Indication: Reason: RIGHT SHOULDER PAIN, PRE-OP GALILEO PROTOCOL / Spl. Instructions: / History: Decreased ROM Exposure: One or more of the following individualized dose reduction techniques were utilized for this examination: 1. Automated exposure control 2. Adjustment of the mA and/or kV according to patient size 3. Use of iterative reconstruction technique. Findings: Acromioclavicular joint DJD, with small undersurface osteophyte at the outer clavicle. Vacuum within the joint. High riding humerus, contacting the acromial undersurface, compatible with a full-thickness rotator cuff tear. Glenohumeral joint DJD with joint space narrowing, particularly anteriorly. Small subchondral cysts at the posterior glenoid with posterior glenoid bone hypertrophy or calcification along the labrum. No evidence of acute fracture. No aggressive bone destruction. No dislocation. The visualized right upper lung is grossly clear. No significant soft tissue abnormality. IMPRESSION: 1. DJD. 2. Full-thickness rotator cuff tear of at least the supraspinatus tendon. Electronically signed by: Jadon Palencia MD (12/05/2019 3:53 PM) [id number]
== END | disposition home or self-care (01) ==
LOC: KCIC CT 14:58
PROVIDERS: ATTEND Orthopaedic Surgery
DX: M19.011 Primary osteoarthritis, right shoulder (principal); M75.101 Unspecified rotator cuff tear or rupture of right shoulder, not specified as traumatic; M25.811 Other specified joint disorders, right shoulder; M25.711 Osteophyte, right shoulder
CPT/HCPCS: 73200

== ENCOUNTER 2021-10-24 09:20 | Emergency (ER) | payer BC ==
[~2021-10-24] VITALS: Ht 185.4 cm; Wt 114.9 kg
[~2021-10-24 09:20] MED LIST changes: -FENO134C PO; +FENO134C22 PO
--- NOTE | 2021-10-24 10:57 | PHYS DOC ---
Past Medical History Past Medical History: Diabetes-Type II, High Cholesterol, Hypertension, Other Additional Past Medical Histor: LIVER ABSCESS, INSOMNIA, neuropathy Past Surgical History: Tonsillectomy Additional Past Surgical Histo: CARPAL TUNNEL, RIGHT KNEE, R shoulder replacement Smoking Status: Current Every Day Smoker Alcohol Use: Occasionally Drug Use: None General Adult EDM: Chief Complaint: UPPER EXTREMITY PAIN HPI: HPI: Patient is a 56-year-old male who presents today with right arm numbness. Patient states the numbness started approximately 3 days ago and is progressively gotten worse, he said the pain starts in his neck and radiates along the trapezius muscle and goes into the right arm. Patient states the numbness comes and goes and comes in waves he said there are times where he moves his neck a certain way and the pain gets worse, he says he also notices a temperature change with certain movements as well. Patient states that he has left hand dominant he said that he has had carpal tunnel surgery in his left hand in the past and this feels somewhat different than that. Patient states that he has low back issues for which she sees a neurologist Dr. Vazquez in [facility], and he takes gabapentin for neuropathy pain in his legs. Patient states the pain worsens when he is on his phone at which time he has to sit down the phone and bring his head and move his head around for the numbness to improve. Review of Systems: Review of Systems: Constitutional: Denies fever or chills. [] Eyes: Denies change in visual acuity. [] HENT: Denies nasal congestion or sore throat. [] Respiratory: Denies cough or shortness of breath. [] Cardiovascular: Denies chest pain or edema. [] GI: Denies abdominal pain, nausea, vomiting, bloody stools or diarrhea. [] : Denies dysuria. [] Musculoskeletal: Neck pain denies back pain or joint pain. [] Integument: Denies rash. [] Neurologic: Right arm numbness Endocrine: Denies polyuria or polydipsia. [] Lymphatic: Denies swollen glands. [] Psychiatric: Denies depression or anxiety. [] Heart Score: C/O Chest Pain: No Risk Factors: Risk Factors: DM, Current or recent (<one month) smoker, HTN, HLP, family history of CAD, obesity. Risk Scores: Score 0 - 3: 2.5% MACE over next 6 weeks - Discharge Home Score 4 - 6: 20.3% MACE over next 6 weeks - Admit for Clinical Observation Score 7 - 10: 72.7% MACE over next 6 weeks - Early Invasive Strategies Allergies: Allergies: Allergies Coded Allergies Type Severity Reaction Last Updated Verified cephalexin Allergy Intermediate 04/22/19 Yes Physical Exam: PE: Constitutional: Well developed, well nourished, no acute distress, non-toxic appearance. [] HENT: Normocephalic, atraumatic, bilateral external ears normal, oropharynx moist, no oral exudates, nose normal. [] Eyes: PERRLA, EOMI, conjunctiva normal, no discharge. [] Neck: Normal range of motion, patient has tenderness along the right side of his neck, along the trapezius muscle, no midline tenderness no crepitus no step- offs Cardiovascular:Heart rate regular rhythm, no murmur [] Lungs & Thorax: Bilateral breath sounds clear to auscultation [] Abdomen: Bowel sounds normal, soft, no tenderness, no masses, no pulsatile masses. [] Skin: Warm, dry, no erythema, no rash. [] Back: No tenderness, no CVA tenderness. [] Extremities: Right arm has adequate range of motion no numbness and tingling at this time, capillary refill is less than 2 seconds sensory is intact radial pulses 2+ hand is pink warm and dry Neurologic: Alert and oriented X 3, normal motor function, normal sensory function, no focal deficits noted. [] Psychologic: Affect normal, judgement normal, mood normal. [] Current Patient Data: Vital Signs: Vital Signs Date Time Temp Pulse Resp B/P (MAP) Pulse Ox O2 Delivery O2 Flow Rate FiO2 10/24/21 09:59 98.1 81 18 139/75 (96) 97 Room Air 98.1 EKG: EKG: [] Radiology/Procedures: Radiology/Procedures: REASON: neck pain with numbness in right arm PROCEDURE: CT CERVICAL SPINE WO CONTRAST EXAM: CT cervical spine without contrast INDICATION: Neck pain, numbness in right arm. COMPARISON: MRI cervical spine 01/28/2019 TECHNIQUE: Axial CT imaging through cervical spine without intravenous contrast. Sagittal and coronal reformats were obtained. One or more of the following individualized dose reduction techniques were utilized for this examination: 1. Automated exposure control 2. Adjustment of the mA and/or kV according to patient size 3. Use of iterative reconstruction technique. FINDINGS: No acute fracture. There is 2 mm retrolisthesis of C5 on C6. Mild kyphosis centered at C4-C5. There is minimal anterolisthesis of C7 on T1 and T1 on T2. There is severe disc space narrowing at C5-C6 and C6-C7 with degenerative e ndplate changes. Mild to moderate disc space narrowing at the remaining levels. There is uncovertebral joint proliferation resulting in moderate to severe foraminal narrowing on the left at C3-C4, severe on the right at C5-C6 and moderate to severe on the right at C6-C7. There is moderate foraminal narrowing at multiple other levels. Mild to moderate canal narrowing at multiple levels, as seen on prior MRI. There is a coarse calcification in the right thyroid lobe. Prevertebral soft tissue is normal. Lung apices are clear. IMPRESSION: 1. No acute osseous abnormality. 2. Multilevel degenerative disc disease. 3. Severe right foraminal narrowing at C5-C6, moderate to severe right foraminal narrowing at C6-C7, and moderate to severe left foraminal narrowing at C3-C4. 4. Canal narrowing at multiple levels, as seen on prior MRI. Electronically signed by: Corry Cohn MD (10/24/2021 11:56 AM) [id number] [] Course & Med Decision Making: Course & Med Decision Making Pertinent Labs and Imaging studies reviewed. (See chart for details) [address] Wilkins nurse practitioner Poppy regarding this patient's case, she reviewed the films with Dr. Wilkins and feel that an outpatient management is appropriate at this time. She did recommend placing the patient on a Medrol Dosepak giving him some opioid pain medication and to have him follow-up with soon as possible in the office for further evaluation and management of this neck pain and arm pain. I did speak to patient regarding this and he is agreeable with the plan of care. Keo Disclaimer: Keo Disclaimer: This electronic medical record was generated, in whole or in part, using a voice recognition dictation system. Departure Departure Impression: Primary Impression: Radiculopathy Qualified Codes: M54.12 - Radiculopathy, cervical region Disposition: 01 HOME / SELF CARE / HOMELESS Condition: STABLE Referrals: CYRUS SAGASTUME MD (PCP) ALONA TRUJILLO MD Patient Instructions: Cervical Radiculopathy Additional Instructions: Medrol Dosepak as prescribed Hydrocodone 1 to 2 tablets every 6 hours as needed for severe pain, use with caution may cause drowsiness and constipation Follow-up with Dr. Wilkins who is in the referred section of the discharge instructions for an appointment as soon as possible for further evaluation and management of this neck issue Return to the emergency department should you have decrease use of your right arm or have complete numbness of your right arm. Scripts Hydrocodone Bit/Acetaminophen (HYDROCODONE-APAP 5-325 ) 1 Tab Tablet 1 TAB PO PRN Q6HRS PRN for PAIN, #20 TAB 0 Refills Prov: KENIA SCHMIDT [employer] 10/24/21 Methylprednisolone (MEDROL) 4 Mg Tab.ds.pk 1 PKG PO UD, #1 PKG Prov: KENIA SCHMIDT [employer] 10/24/21 KENIA SCHMIDT [employer] October 24, 2021 10:57
--- NOTE | 2021-10-24 11:58 | RAD ---
EXAM: CT cervical spine without contrast INDICATION: Neck pain, numbness in right arm. COMPARISON: MRI cervical spine 01/28/2019 TECHNIQUE: Axial CT imaging through cervical spine without intravenous contrast. Sagittal and coronal reformats were obtained. One or more of the following individualized dose reduction techniques were utilized for this examinat ion: 1. Automated exposure control 2. Adjustment of the mA and/or kV according to patient size 3. Use of iterative reconstruction technique. FINDINGS: No acute fracture. There is 2 mm retrolisthesis of C5 on C6. Mild kyphosis centered at C4-C5. There i s minimal anterolisthesis of C7 on T1 and T1 on T2. There is severe disc space narrowing at C5-C6 and C6-C7 with degenerative endplate changes. Mild to moderate disc space narrowing at the remaining lev els. There is uncovertebral joint proliferation resulting in moderate to severe foraminal narrowing o n the left at C3-C4, severe on the right at C5-C6 and moderate to severe on the right at C6-C7. There is moderate foraminal narrowing at multiple other levels. Mild to moderate canal narrowing at multip le levels, as seen on prior MRI. There is a coarse calcification in the right thyroid lobe. Preverteb ral soft tissue is normal. Lung apices are clear. IMPRESSION: 1. No acute osseous abnormality. 2. Multilevel degenerative disc disease. 3. Severe right foraminal narrowing at C5-C6, moderate to severe right foraminal narrowing at C6-C7, and moderate to severe left foraminal narrowing at C3-C4. 4. Canal narrowing at multiple levels, as seen on prior MRI. Electronically signed by: Corry Cohn MD (10/24/2021 11:56 AM) [id number]
[2021-10-24 13:04] VITALS: BP 140/80
[2021-10-24] MEDS ORDERED: METH4TAB2 PO (13:07)
[2021-10-24] MEDS ORDERED: HYDR-2761 PO (13:07)
== END 2021-10-24 13:16 | disposition home or self-care (01) ==
LOC: ER 09:20
DX: M54.12 Radiculopathy, cervical region (principal); E78.00 Pure hypercholesterolemia, unspecified; E11.40 Type 2 diabetes mellitus with diabetic neuropathy, unspecified; I10 Essential (primary) hypertension; F17.200 Nicotine dependence, unspecified, uncomplicated; Z88.1 Allergy status to other antibiotic agents
CPT/HCPCS: 72125; 99284-25; 99285-25